=== PATIENT | male | born 1940 | race Caucasian/White ===

== ENCOUNTER 2023-07-18 09:23 | Outpatient (RCR) | payer MEDICARE, SELFPAY ==
--- NOTE | 2023-07-18 15:52 | PT.OPEX ---
[facility] Eval PT [facility] Outpatient Eval Start: 07/18/23 12:50 Freq: Status: Active Protocol: Document 07/18/23 12:50 CHUCKY (Rec: 07/18/23 15:42 CHUCKY [id number]) E-signed By Sheyla Garcia DPT Physical Therapy Outpatient Evaluation Insurance Information Recert Due Date 08/17/23 Insurance Name Medicare B Medical Diagnosis R knee pain R TKA 07/25/23 Treating Diagnosis R knee pain, impaired R knee ROM, limping/antalgic gait Subjective Subjective Patient reports chronic R knee pain leading up to R TKA . He reports living near [place] and planning to go to OP PT in [place]. He is scheduled for OP PT on 07/29. Patient has SO that is available to assist at home after surgery. States he had L TKA about 3-4 years ago. Patient has been walking leading up to surgery. Distances are limited by pain. He has not been using an AD. He has FWW at home from prior TKA. Reports 3 stairs to enter home with railing on R to get into home. Once inside able to stay on the main level. Thinks he has shower chair and commode from prior TKA surgery. Date of Last Physician Visit 05/20/23 Date of Surgery (If applicable) 07/25/23 Current Work Status Retired Assessment Assessment/Impression Patient is an 83 year old male with chronic R knee pain. He is scheduled for R TKA . He is seen in PT today for pre-op session to provide education/information on upcoming TKA surgery, safety information/HO, equipment instruction including use of FWW, and instruction/ demonstration of TKA exercises . Handouts issued for exercises, patient to perform them leading up to surgery. Reviewed PT/OT plan during hospital stay and patient is scheduled for OP PT post op in [place]. Patient had L TKA 3-4 years ago. He reports having his FWW from that surgery. 3 stairs to enter the home with R railing going up. Once inside, patient can stay on main level. He has a SO that is able to assist at home after surgery. Patient thinks he has a shower chair and commode from his prior TKA . He will look for this equipment at home. PT goals for pre-op session have been met. Patient will be going to post op rehab in [place]. No further PT scheduled at this clinic. Plan of Care Rehabilitation Potential Good Physical Therapy Goals 1. Patient will be educated in TKA pre/post-op safety, mobility, and exercises with HOs provided within one visit with patient going to PT for post op treatment after R TKA surgery on 07/25/23. Post op rehab scheduled in [place]. Coordination/Communication With Referral Source Frequency/Duration one session for TKA pre-op Patient Will Be Discharged From Therapy Completion of LTG(s),Skills Plateau,Independent w/HEP, Independently Progressing Evaluation Billing Untimed Code Treatment Minutes 34 Complexity Low Certification Information Initial Certification Date 07/18/23 Ending Certification Date 08/17/23 Provider Signature Shows Agreement With POC & Medical Necessity Physician Signature & Date Requested Please Sign/Date Here Physician Comment/Change : Physician NPI Number #
== END 2023-11-01 11:33 | disposition home or self-care (01) ==
PROVIDERS: Visit Provider Orthopaedic Surgery
DX: M17.11 Unilateral primary osteoarthritis, right knee (principal); M25.561 Pain in right knee; Z96.651 Presence of right artificial knee joint; Z74.09 Other reduced mobility; R26.89 Other abnormalities of gait and mobility; Z51.89 Encounter for other specified aftercare
CPT/HCPCS: 97161

== ENCOUNTER 2023-07-25 10:40 | Day surgery (SDC) | payer MEDICARE, SELFPAY ==
[2023-07-25] VITALS (21 sets, daily range): BP systolic 97–159; BP diastolic 62–105; PULSE 53–78; RESP 14–20; TEMP 35.3–36.4; O2SAT 90–100; BMI 28.7
[2023-07-25] MEDS: SODIUM CHLORIDE 0.9 % (FLUSH) 10 ML SYRINGE IVF (11:45)
[2023-07-25] MEDS: LACTATED RINGERS 1000 ML 1,000 ML 100 ML IV ×2 (11:45→13:56)
[2023-07-25] MEDS: OXYCODONE (CR) 10 MG TAB.ER.12H PO (11:53)
[2023-07-25] MEDS: CELECOXIB 200 MG CAPSULE PO (11:53)
[2023-07-25] MEDS: ACETAMINOPHEN 500 MG TABLET 1000 MG PO ×2 (11:53→17:37)
[2023-07-25 12:16] LABS: INR 1.13 (0.91-1.10); Prothrombin Time 15.2 Seconds
[2023-07-25] MEDS: fentaNYL 100 MCG/2 ML inj IVP (12:22)
[2023-07-25] MEDS: MIDAZOLAM HCL 1 MG/ML inj IVP (12:22)
--- NOTE | 2023-07-25 12:23 | SUR.PREOP ---
TIME?OUT:?1222 PT/RN/MDA?VERIFICATION?OF?SURGICAL?SITE,?PROCEDURE,?AND?CONSENT OBTAINED?PRIOR?TO?INVASIVE?PROCEDURE.
[2023-07-25] MEDS: CEFAZOLIN 2 GM INJ IVP (12:39)
--- NOTE | 2023-07-25 14:01 | CRLHL7_ITS ---
For Patients: As a result of the Cures Act, medical imaging exams and procedure reports are released immediately into your electronic medical record. You may view this report before your referring provider. If you have questions, please contact your health care provider. Indication: POST OP TKA Technique: Two views right knee Findings/Impression: Hardware from a right total knee arthroplasty is in satisfactory position. Bone alignment is normal. No sign of acute fracture. Postop changes are within normal limits. Dictated by Ronni Graham MD @ 07/26/2023 10:03:12 AM (Electronically Signed)
--- NOTE | 2023-07-25 14:02 | P.ORPRC_ITS ---
Procedure Note Date of procedure: 07/25/23 Procedure: PREOPERATIVE DIAGNOSIS: Right knee osteoarthritis POSTOPERATIVE DIAGNOSIS: Right knee osteoarthritis NAME OF OPERATION: Right total knee arthroplasty SURGEON: Boston De La Rosa MD AGRICULTURAL SCIENTIST: Sola Callahan PA-C ANESTHESIA: Spinal ESTIMATED BLOOD LOSS: 0 mL COMPLICATIONS: None SPECIMENS: None DRAINS: None PREOPERATIVE ANTIBIOTICS: Ancef 2 grams IMPLANTS: 1. J&J Attune # 7 posterior stabilized femur 2. # 7 fixed-bearing tibia 3. # 7 posterior stabilized, 5 mm fixed-bearing polyethylene 4. 41 patella INDICATIONS: The patient is a 83-year-old with a longstanding history of severe, unrelenting right knee pain secondary to end-stage (grade IV) right knee osteoarthritis. Despite appropriate nonoperative management, including activity modification, anti-inflammatories, [id number] pain medication, bracing, physical therapy, and injections they continue to have pain and disability. Operative intervention was offered. The risks, benefits and expected outcomes were discussed in detail. These includ ed but were not limited to: Infection, bleeding, injury to blood vessel or nerve, venous thromboembolism. All questions were answered to their satisfaction. Use of an technical services assistant was necessary throughout the case for patient positioning and safety, soft tissue retraction, and closure. PROCEDURE: Spinal anesthesia was administered. The patient was placed supine on the operating table. The technical services assistant made sure the patient was positioned appropriately. The lower extremity was prepped and draped in the usual sterile fashion. The limb was exsanguinated with the Gabriel bandage. The pneumatic tourniquet was inflated to 300 mmHg. A standard anterior incision was made with the knee in flexion. Subcutaneous dissection was sharply taken through fascial layer #1. Full-thickness medial and lateral flaps were elevated. The technical services assistant retracted the soft tissues and protected them throughout the case. The vastus medialis was elevated off of the medial intermuscular septum. The medial retinaculum was divided, the patella was everted , completing the subvastus approach. The infrapatellar fat pad was preserved. The menisci and cruciate ligaments were sharply d?brided. Marginal osteophytes were d?brided with the rongeur. The drill was used to penetrate the femoral canal. The canal was aspirated and irrigated with pulse lavage. The intramedullary femoral guide was placed for a 5-degree valgus cut, removing 10 mm off the distal femur. The saw was used to make the cut. Whitesides line and the trans epicondylar axis were marked. The femoral sizing guide was pinned onto the distal femur. Three degrees of external rotation nicely parallels the transepicondylar axis. Pins were placed for posterior referencing. The four-in-one cutting guide was pinned onto the distal femur. The anterior, posterior, and chamfer cuts were made. The technical services assistant protected the collateral ligaments. The box cutting guide was pinned. The box cuts were made. The boxed trial was placed and was an excellent fit. Drill holes for the lugs were made. Attention was then turned to the proximal tibia. The extramedullary tibial guide was placed for a neutral varus/valgus cut with 5 degrees of posterior slope, removing 2 mm based off the medial tibial surface. The technical services assistant protected the collateral ligaments and the neurovascular bundle. The saw was used to make the cut. Trial components were placed. The knee was nicely balanced in both flexion and extension. The trial components were removed. The tray was placed in appropriate rotation, parallel to our tibial cutting pins. It was pinned by the technical services assistant and the drill and the punch were used. The tray was removed. The punch was used again. We placed a bone plug in the femoral canal. Attention was then turned to the patella. Wiyot patellar thickness was 19.5 mm. The lobster claw resection guide was used with the 7.5 mm corie. The saw was used to make the cut. Drill holes were made by the technical services assistant. The trial was placed and was an excellent fit. Cancellous surfaces were irrigated with pulse lavage and thoroughly dried by the technical services assistant. We cemented the tibial component, then the femoral component. We impacted the 5 mm polyethylene onto the tibial tray. The knee was brought into full extension. We then cemented the patellar component. Excessive cement was removed. The cement was allowed to harden. The knee was taken through a range of motion and was found to be nicely balanced in both flexion and extension. The patella tracks centrally. The technical services assistant did a three minute dilute Betadine solution soak. The technical services assistant irrigated the wound with 3 liters of normal saline via pulse lavage. The technical services assistant reapproximated the extensor mechanism with #1 Vicryl in an interrupted [id number]-matci fashion. The technical services assistant then ran the extensor mechanism with a #1 PDO Stratafix. The technical services assistant closed the subcutaneous tissues with a 3-0 Stratafix and the skin with a running 3-0 Stratafix in a subcuticular fashion. Glue was used to seal the skin. The technical services assistant placed a dry dressing, IVY stocking, and Polar Care. Sponge and needle counts were correct x2. The patient tolerated the procedure well. There were no apparent complications. They were carefully transferred to the hospital bed and taken to the postanesthesia care unit in satisfactory condition. PLAN: The patient will be mobilized with physical therapy. His usual dose of Coumadin will be restarted. He will be discharged to home once medically appropriate.
--- NOTE | 2023-07-25 14:48 | W.ANESCHARGE ---
Anesthesia Charges Start Date/Time Anesthesia Start Date: 07/25/23 Anesthesia Start Time: 12:32 Stop Date/Time Anesthesia Stop Date: 07/25/23 Anesthesia Stop Time: 14:54 Summary Extremes of Age - Over 70 or under 1: MDA
--- NOTE | 2023-07-25 14:49 | P.NB_ITS ---
Nerve Block Nerve Block Time Seen by Provider: 12: Date Seen: 07/25/23 Type of block requested by surgeon for post-operative analgesia: adductor canal Side: right Time out performed: Yes Verification of patient name: Yes Verification of date of : Yes Site marking: site marked Name of person performing procedure: Rosalino Continuous monitoring Was continuous monitoring of O2 sat, B/P, personnel monitor, recorded every 15 minutes?: Yes Procedure Checklist: sterile prep, needles and gloves Ultrasound guided. Images saved: Yes Medications given in 5ml increments after negative aspiration: Ropivicaine %: 0.5 mL: 20 Needle gauge: 20 Decadron (mg): 10 Precedex (mcg): 25 Patient tolerated procedure well: Yes Additional comments: Needle noted adjacent to nerve Block Charges Block Charge (with Pro Fee): Femoral Nerve Use of Ultrasound Machine for Block: Yes- US Guidance/pain block
--- NOTE | 2023-07-25 14:49 | W.PM.NB ---
Nerve Block Nerve Block Time Seen by Provider: : Date Seen: 07/25/23 Type of block requested by surgeon for post-operative analgesia: geniculars Side: right Time out performed: Yes Verification of patient name: Yes Verification of date of : Yes Site marking: site marked Name of person performing procedure: Rosalino Continuous monitoring Was continuous monitoring of O2 sat, B/P, traffic monitor specialist, recorded every 15 minutes?: Yes Procedure Checklist: sterile prep, needles and gloves Medications given in 5ml increments after negative aspiration: Ropivicaine %: 0.5 mL: 9 Needle gauge: 25 Patient tolerated procedure well: Yes Block Charges Block Charge (with Pro Fee): Genicular Nerve Block Use of Ultrasound Machine for Block: No
--- NOTE | 2023-07-25 14:58 | W.ANESCHARGE ---
Anesthesia Charges Start Date/Time Anesthesia Start Date: 07/25/23 Anesthesia Start Time: 12:32 Stop Date/Time Anesthesia Stop Date: 07/25/23 Anesthesia Stop Time: 14:54
[2023-07-25] MEDS: LACTATED RINGERS 1000 ML 1,000 ML 75 ML IV (16:17)
[2023-07-25] MEDS: ONDANSETRON 2 MG/ML inj 4 MG IVP (16:17)
--- NOTE | 2023-07-25 16:33 | P.IMCN_ITS ---
Date of Consult Consult date: 07/25/23 Requesting Physician: Orthopedics Primary Care Provider: Not a Local Provider Consult Narrative Narrative: HOSPITALIST CONSULT NAME OF OPERATION: Right total knee arthroplasty SURGEON: Boston De La Rosa MD FUR DRESSING SUPERVISOR: Sola Callahan PA-C ANESTHESIA: Spinal ESTIMATED BLOOD LOSS: 0 mL COMPLICATIONS: None The hospital medicine team was asked by the orthopedic surgery team to manage the patient's hx of DVT/PE, HTN. There have been no perioperative complications. Updated and reviewed the active medical problems, past medical history, past surgical history, social history, allergies and medications in our electronic EMR. PHYSICAL EXAM: CODE STATUS: FULL CODE CONSTITUTIONAL: Conversive, good historian. A/O. Knows setting and context. VITAL SIGNS: see record. HEENT: Normocephalic, atraumatic. PERRL, EOMI, conjunctivae pink, no scleral icterus. Ears and nose externally normal. Pharynx normal. NECK: No JVD. No carotid bruit, no thyromegaly, no adenopathy. CHEST: Clear to auscultation bilaterally HEART: S1 and S2 normal. ABDOMEN: Flat, soft, nontender. Normal bowel sounds. Moderately obese. EXTREMITIES: No edema. MUSCULOSKELETAL: SDI NEURO: Cranial nerves intact. Mentation normal. Normal affect. SKIN: No rashes, petechiae, concerning changes PSYCHIATRIC: Mentation normal. INVESTIGATIONS: EMR Reviewed; Pre-OP Reviewed DISPOSITION: DVT: would restart his Coumadin the day after surgery. The option of lovenox bridging was discussed and the patient would prefer not to do this. 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) ?Z96.651 - Presence of right artificial knee joint (ICD-10) History of bilateral carpal tunnel release ?Z98.890 - Other specified postprocedural states (ICD-10) Status post total left knee replacement (02/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) ?Z96.652 - Presence of left artificial knee joint (ICD-10) Social History What is your current living situation?: I presently have a place to live In the past 12 months, utilities in danger of being shut off: no In past 12 months, lack of transportation kept you from medical appts, meetings, work, or getting things needed for daily living: no In the past 12 mos, have been you worried that your food would run out before you had money to buy more?: never true In the past 12 mos, the food you bought just didn't last and you didn't have money to buy more?: never true Smoking Status: Former smoker How often do you have a drink containing alcohol: never AUDIT-C Alcohol total score: 0 Non-prescribed substance use: denies use Caffeine: Yes How often does anyone, including family, friends and others, physically hurt you : never How often does anyone, including family, friends and others, insult or talk down to you: never How often does anyone, including family, friends and others, threaten you with harm: never How often does anyone, including family, friends and others, scream or curse at you: never Meds Home Medications and Allergies Home Medications Medication Instructions Recorded Confirmed Type lisinopril 5 mg tablet 5 mg PO DAILY 05/15/23 07/25/23 History warfarin 5 mg tablet 2.5 mg PO DAILY 05/15/23 07/25/23 History rosuvastatin 10 mg tablet 10 mg PO HS 07/25/23 07/25/23 History Allergies Allergy/AdvReac Type Severity Reaction Status Date / Time atorvastatin Allergy Intermediate body aches Verified 07/31/23 10:17 Exam Const: Vital Signs, click to edit/add: Vital Signs - 24 hr 07/25/23 11:33 07/25/23 12:22 07/25/23 12:25 Temperature 97.6 F Pulse Rate 78 73 63 Respiratory Rate 16 16 16 Blood Pressure 126/80 135/77 135/77 Pulse Oximetry 98 97 100 Oxygen Delivery Me thod Room Air Nasal Cannula Nasal Cannula Oxygen Flow Rate 3 3 07/25/23 14:50 07/25/23 14:55 07/25/23 15:00 Temperature 97 F L Pulse Rate 60 60 60 Respiratory Rate 14 14 14 Blood Pressure 106/64 115/66 111/66 Pulse Oximetry 98 98 98 Oxygen Delivery Me thod Non Rebreather Mas k Non Rebreather Mas k Non Rebreather Mas k Oxygen Flow Rate 5 5 5 07/25/23 15:05 07/25/23 15:10 07/25/23 15:15 Temperature Pulse Rate 56 L 63 60 Respiratory Rate 14 14 14 Blood Pressure 114/69 119/79 118/70 Pulse Oximetry 95 98 97 Oxygen Delivery Me thod Room Air Room Air Room Air Oxygen Flow Rate 07/25/23 15:20 Temperature 97 F L Pulse Rate 55 L Respiratory Rate 14 Blood Pressure 122/62 Pulse Oximetry 97 Oxygen Delivery Me thod Room Air Oxygen Flow Rate Assessment and Plan Assessment and plan (1) Status post total right knee replacement: Problem comment: Day 1 s/p doing well except for syncopal episode this morning. (Dr. De La Rosa, 07/25/2023) Status: Acute (2) Hypertension: Problem comment: Resume lisinopril when he gets home Status: Acute (3) Pulmonary embolism: Problem comment: -has been on lifelong coumadin. Resume normal warfarin dose Status: Acute
[2023-07-25] MEDS: WARFARIN 5 MG TABLET PO (17:37)
[2023-07-25] MEDS: CEFAZOLIN 2 GM in 0.9 % SODIUM CHLORIDE Mini-bag 100 ML IVPB (17:37)
[2023-07-25] MEDS: ROSUVASTATIN CALCIUM 10 MG TABLET PO (21:19)
[2023-07-25] MEDS: OXYCODONE 5 MG TABLET PO ×2 (21:19→22:36)
[2023-07-25] MEDS: SENNOSIDES 1 TAB TABLET 2 TAB PO (21:19)
[2023-07-25] MEDS: MAG HYDROX/ALUMINUM HYD/SIMETH 30 ML ORAL.SUSP PO (22:36)
[2023-07-26] VITALS: BP 134/81; PULSE 71; RESP 18; TEMP 36.4; O2SAT 93
--- NOTE | 2023-07-26 00:08 | PC.NURSE ---
Patient to the unit at 1738. Drowsy at first. Oxy x1 for 5/10 pain to R. knee. Cryo cuff to op site. A1/walker/GB. Tolerates movement well. Dressing to r. knee C/D/I. CMS intact. Zofran x1 for mild nausea. Tolerates a regular diet. Eating and voiding.
[2023-07-26] MEDS: ACETAMINOPHEN 500 MG TABLET 1000 MG PO ×3 (00:09→12:37)
[2023-07-26 03:00] VITALS: BP 130/78; PULSE 61; RESP 20; TEMP 36.7; O2SAT 91
[2023-07-26] MEDS: CEFAZOLIN 2 GM in 0.9 % SODIUM CHLORIDE Mini-bag 100 ML IVPB (03:03)
[2023-07-26] MEDS: OXYCODONE 5 MG TABLET PO ×3 (03:03→12:58)
[2023-07-26 06:43] LABS: Hematocrit 42.6 % (37.0-53.0); Immature Granulocytes Abs Auto 0.01 K/uL (0.00-0.30); Immature Granulocytes Pct Auto 0.1 %; Lymphocytes Percent Auto 6.3 % (20-44); Mean Corpuscular HGB Conc 33 gm/dL (32-36); Mean Corpuscular Hemoglobin 31 pg (26-34); Mean Corpuscular Volume 95 fL (80-100); Monocytes Percent Auto 5.4 % (0.0-11.0); Neutrophils Percent Auto 88.2 % (42.0-72.0); Platelet Count* 135 K/uL (140-440); RDW Coefficient of Variation % 13.4 % (11.5-15.5); Red Blood Count 4.47 m/uL (4.30-5.90); White Blood Count* 8.57 K/uL (4.50-11.00)
[2023-07-26 06:48] LABS: Slide Review Reflex No
[2023-07-26 06:51] LABS: Potassium* 4.7 mmol/L (3.6-5.1); Sodium* 134 mmol/L (135-149)
[2023-07-26 06:54] LABS: Creatinine* 1.2 mg/dL (0.5-1.5); Est. Creatinine Clearance* 48.16; Estimated Glomerular Filt Rate 60 ml/min
[2023-07-26 06:55] LABS: Blood Urea Nitrogen* 30 mg/dL (7-30)
[2023-07-26 06:57] LABS: INR 1.17 (0.91-1.10); Prothrombin Time 15.7 Seconds
[2023-07-26 07:00] VITALS: BP 110/68; PULSE 75; RESP 20; TEMP 36.5; O2SAT 94
[2023-07-26] MEDS: SENNOSIDES 1 TAB TABLET 2 TAB PO (09:01)
--- NOTE | 2023-07-26 09:39 | CRLHL7_ITS ---
For Patients: As a result of the Century Cures Act, medical imaging exams and procedure reports are released immediately into your electronic medical record. You may view this report before your referring provider. If you have questions, please contact your health care provider. INDICATION: Syncope. Knee surgery 07/25/2023. COMPARISON: None TECHNIQUE: : CT examination of the chest was performed with the uneventful intravenous administration of 95 cc of Isovue 370 while thin axial sections were obtained from above the apices of the lungs to the lung bases. Please note that all CT scans at this facility use dose modulation, iterative reconstruction, and/or weight-based dosing when appropriate to reduce radiation dose to as low as reasonably achievable. FINDINGS: : HEART and MEDIASTINUM: The heart size is normal. There is no mediastinal or hilar adenopathy or mass. There is no pericardial effusion.Mild fusiform aneurysmal dilation of the ascending aorta at 4.3 centimeters. PULMONARY ARTERIAL CIRCULATION: There is no visible intraluminal filling defect to suggest pulmonary embolus. LUNGS: Biapical subpleural cystic change probably due to mild paraseptal emphysema. The nearest of atelectasis primarily at the bases. Evidence of remote granulomatous infection. A few linear and reticular subpleural opacities are noted consistent with scarring/minimal fibrosis. PLEURAL SPACES: There is no pleural effusion, pneumothorax or pleural based mass. VISUALIZED UPPER ABDOMEN: The limited visualized upper abdominal structures appear normal. OSSEOUS STRUCTURES: Age-appropriate appearance. No acute fracture or destructive process. TUBES and LINES: None. IMPRESSION: 1. There is no finding of pulmonary embolus. 2. 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 3. Minimal biapical subpleural cystic change likely representing mild paraseptal emphysema. There are areas of atelectasis and scarring as described. No focal consolidation, infiltrate or mass. Normal pleural spaces Please note that all CT scans at this facility use dose modulation, iterative reconstruction, and/or weight-based dosing when appropriate to reduce radiation dose to as low as reasonably achievable. Dictated by Rojelio Silva MD @ 07/26/2023 10:34:04 AM (Electronically Signed)
[2023-07-26 09:45] VITALS: BP 132/82; PULSE 69; RESP 18; O2SAT 88
[2023-07-26 09:55] VITALS: BP 126/78; PULSE 72; RESP 18; O2SAT 93
--- NOTE | 2023-07-26 09:55 | PM.ORPN ---
Subjective Subjective Time Seen by Provider: 08:45 Date Seen: 07/26/23 Principal diagnosis: Day 1 s/p right total knee arthroplasty Interval history: Andrews is doing well this morning and resting in his recliner. C/o minimal right knee pain and right quad soreness/tightness. Denies: fever, chills, chest pain, SOB, numbness/tingling distally. Pain is well controlled with acetaminophen and oxycodone. Patient has a history of DVT and PE. Takes coumadin 5 mg Tu/Th and 2.5 mg Mon/Sat/Sat/Sat/Sun. No acute concerns overnight. Andrews's friend, Tiara, will be assisting Andrews at home. Ortho Exam Narrative Exam Narrative: Incision/Dressing: Dressing appears clean and dry. No drainage present. Mepilex intact. Right knee appears moderately swollen but supple with no obvious erythema, fluctuance or excessive warmth. No ecchymosis or erythematous streaking. Warmth around the wound is appropriate. Ice is being utilized as needed. CMS: Intact distally with 2+ Dorsalis pedis and Posterior Tibial pulses. 5/5 motor strength dorsal and plantar flexion. Confirmed sensation distally. Intact straight leg raise. Calf: Bilateral calves are supple, with no swelling, pain, tenderness, erythema, discoloration or coolness to the touch. Constitutional: Patient is alert and oriented x3. Patient is in no acute distress and converses without labored breathing. Patient is able to make decisions and demonstrates good insight. Patient is pleasant and cooperative. Affect is full range and appropriate for the circumstances. Const Vital Signs, click to edit/add: Vital Signs - 24 hr 07/25/23 11:33 07/25/23 12:22 07/25/23 12:25 Temperature 97.6 F Pulse Rate 78 73 63 Pulse Rate [Left Pulse Oximeter] Respiratory Rate 16 16 16 Blood Pressure 126/80 135/77 135/77 Blood Pressure [Right Arm] Pulse Oximetry 98 97 100 Oxygen Delivery Method Room Air Nasal Cannula Nasal Cannula Oxygen Flow Rate 3 3 07/25/23 14:50 07/25/23 14:55 07/25/23 15:00 Temperature 97 F L Pulse Rate 60 60 60 Pulse Rate [Left Pulse Oximeter] Respiratory Rate 14 14 14 Blood Pressure 106/64 115/66 111/66 Blood Pressure [Right Arm] Pulse Oximetry 98 98 98 Oxygen Delivery Method Non Rebreather Mask Non Rebreather Mask Non Rebreather Mask Oxygen Flow Rate 5 5 5 07/25/23 15:05 07/25/23 15:10 07/25/23 15:15 Temperature Pulse Rate 56 L 63 60 Pulse Rate [Left Pulse Oximeter] Respiratory Rate 14 14 14 Blood Pressure 114/69 119/79 118/70 Blood Pressure [Right Arm] Pulse Oximetry 95 98 97 Oxygen Delivery Method Room Air Room Air Room Air Oxygen Flow Rate 07/25/23 15:20 07/25/23 15:38 07/25/23 15:38 Temperature 97 F L 95.6 F L 95.6 F L Pulse Rate 55 L 58 L Pulse Rate [Left Pulse Oximeter] 58 L Respiratory Rate 14 20 20 Blood Pressure 122/62 Blood Pressure [Right Arm] 129/93 H 129/93 H Pulse Oximetry 97 94 Oxygen Delivery Method Room Air Room Air Oxygen Flow Rate 07/25/23 15:45 07/25/23 16:00 07/25/23 16:15 Temperature 95.6 F L 95.9 F L 95.9 F L Pulse Rate Pulse Rate [Left Pulse Oximeter] 60 61 68 Respiratory Rate 20 18 18 Blood Pressure Blood Pressure [Right Arm] 134/65 130/87 125/92 H Pulse Oximetry 94 93 91 Oxygen Delivery Method Room Air Room Air Room Air Oxygen Flow Rate 07/25/23 16:30 07/25/23 17:00 07/25/23 17:30 Temperature 96.0 F L 96.0 F L 96.3 F L Pulse Rate Pulse Rate [Left Pulse Oximeter] 68 70 53 L Respiratory Rate 18 16 18 Blood Pressure Blood Pressure [Right Arm] 97/81 144/76 H 141/105 H Pulse Oximetry 92 94 91 Oxygen Delivery Method Room Air Room Air Room Air Oxygen Flow Rate 07/25/23 18:00 07/25/23 19:00 07/25/23 20:00 Temperature 96.6 F L 97.0 F L 97.0 F L Pulse Rate Pulse Rate [Left Pulse Oximeter] 60 67 60 Respiratory Rate 18 20 20 Blood Pressure Blood Pressure [Right Arm] 153/79 H 159/95 H 143/79 H Pulse Oximetry 95 90 94 Oxygen Delivery Method Room Air Room Air Room Air Oxygen Flow Rate 07/25/23 21:00 07/26/23 00:00 07/26/23 00:00 Temperature 97.5 F L 97.6 F Pulse Rate Pulse Rate [Left Pulse Oximeter] 61 71 71 Respiratory Rate 20 18 18 Blood Pressure Blood Pressure [Right Arm] 129/79 134/81 Pulse Oximetry 93 93 Oxygen Delivery Method Room Air Room Air Oxygen Flow Rate 07/26/23 03:00 07/26/23 07:00 Temperature 98.0 F 97.7 F Pulse Rate Pulse Rate [Left Pulse Oximeter] 61 75 Respiratory Rate 20 20 Blood Pressure Blood Pressure [Right Arm] 130/78 110/68 Pulse Oximetry 91 94 Oxygen Delivery Method Room Air Room Air Oxygen Flow Rate Assessment and Plan Assessment and plan (1) Status post total right knee replacement: Problem details: Day 1 s/p Status: Acute Plan - Complete 23 hour perioperative antibiotics. - PT/OT consults for education and assistance. Patient will require outpatient physical therapy. - Weight bear as tolerated with a walker for assistance. - Mepilex dressing is waterproof. May shower. Surgical glue covering the wound. Dressing to be removed in 1 week or sooner if the dressing becomes saturated. - Prescribed analgesics as needed. Patient is content with current narcotic medications. Minimize narcotic pain medication use; wean off and discontinue as soon as possible. Ice as needed. - DVT prophylaxis: resume regular coumadin dose. Andrews has an appointment at his [facility] clinic on Sunday 07/29. Also bilateral knee high Martin stockings (x 1 month), frequent ambulation and ankle pumps when sedentary. - Return to clinic in 1 week for a wound check with DANIELLE. - Return to clinic in [address] De La Rosa. - Phone Orthopedics with any questions or concerns. [phone]
[2023-07-26 10:18] LABS: INR 1.18 (0.91-1.10); Partial Thromboplastin Time* 29 Seconds (23-33); Prothrombin Time 15.8 Seconds
[2023-07-26 10:30] LABS: Troponin I* < 0.01 ng/mL (0.01-0.04)
[2023-07-26 11:00] VITALS: BP 137/74; RESP 16; TEMP 36.4
--- NOTE | 2023-07-26 11:50 | PC.NURSE ---
Rapid Response-- At approximately 0935, PARKER Newell came to nurses desk asking for help. Upon arrival pt lying on bed in Therapy room. Pt pale and diaphoretic but appearing to be recovering. He denied CP or SOB. Per report pt had been doing therapy when his eyes began to unfocus, he became pale and diaphoretic and unresponsive. Pt drowsy, but responsive. B/P 132/82, HR 69, RR 18, SPO2 88-91% on RA. BG obtained at 139. ECG completed showing NSR. IV inserted by ED RN and labs drawn with insertion. Pt was able to slowly sit up without difficulty. Pt sent to CT for PE study per MD order.
--- NOTE | 2023-07-26 13:14 | PM.IMPN1 ---
Progress Note: A&P Assessment and plan (1) Syncope: Problem details: Appears to be vasovagal or neurocardiogenic syncope. Electrocardiograms normal. Chest CT for PE was obtained and was normal. Patient is now feeling well and ambulating without lightheadedness or any other symptoms other than knee pain. Status: Acute (2) Pulmonary embolism: Problem details: -has been on lifelong coumadin. Resume normal warfarin dose Status: Acute (3) Hypertension: Problem details: Resume lisinopril when he gets home Status: Acute (4) Status post total right knee replacement: Problem details: Day 1 s/p doing well except for syncopal episode this morning. Status: Acute Plan Patient I think can be safely discharged to home. Follow-up only if recurrent problems with lightheadedness or syncope. Routine outpatient therapy for knee rehab. Time Spent With Patient Total time spent: Total time spent today is 60 minutes, 40 minutes in coordination of care and discussing with patient friend and other providers management of Subjective Date Seen: 07/26/23 Interval history: 83-year-old male who underwent right total knee arthroplasty yesterday seen emergently today for syncopal episode. Patient had an uncomplicated postoperative.. He reported doing well this morning when he got up. He has had some issues with knee pain but otherwise has been managing well. He had a normal breakfast. He went to physical therapy where he had a syncopal episode. It appears that he became nearly completely unresponsive and lost body tone. He was diaphoretic. He was lying supine in the therapy department when I was called to see him as a part of a rapid response team. At that time he was responding to voices, breathing normally and had normal vitals except for hypoxia with O2 sat in the upper 80s. He was quite diaphoretic. He reported feeling very weak and tired. He had no chest pain or dyspnea. He was not aware of a fever. He reported some ongoing knee pain. Patient has history of pulmonary emboli and right lower extremity DVT going back to about 1989. He has been on warfarin since that time. Warfarin was held for surgery this week. INR was 1.2. He has some chronic right lower extremity venous insufficiency with chronic venous stasis skin changes in his right leg since that DVT many years ago. Over the past couple years he has had a couple episodes of syncope as well. On both occasions he was feeling very hot but not exerting himself prior to syncopal episodes. In 1 case he was sitting in [facility] office with his daughter and her 3 dogs in a room that was very warm and he was wearing his winter coat. He was feeling very hot and then briefly lost consciousness. Another occasion he was sitting in a very hot hot tub. He was and comfortably hot and so he was climbing out and had another syncopal episode. He was evaluated in emergency room after 1 of those episodes and discharge without any further evaluation. He has never had syncope associated with physical exertion. Exam Narrative: Exam Narrative: He is alert now lying on a bed in physical therapy department. He answers questions appropriately. He has no obvious facial asymmetry. He moves all 4 extremities well. Respirations are clear to auscultation. Breathing is unlabored. Cardiovascular: S1, S2, regular rate and rhythm. No murmur gallop or rub. Is strong peripheral pulses. Abdomen is soft without tenderness. Lower extremities examined. He has chronic venous stasis changes of his right calf. Mild edema of the right lower extremity which he reports is chronic. There is no marked bruising or bleeding or swelling around the right knee. Left lower extremity is normal. Const: Vital Signs, click to edit/add: Vital Signs - 24 hr 07/25/23 14:50 07/25/23 14:55 07/25/23 15:00 Temperature 97 F L Pulse Rate 60 60 60 Pulse Rate [Left P ulse Oximeter] Respiratory Rate 14 14 14 Blood Pressure 106/64 115/66 111/66 Blood Pressure [Le ft Arm] Blood Pressure [Ri ght Arm] Pulse Oximetry 98 98 98 Oxygen Delivery Me thod Non Rebreather Mas k Non Rebreather Mas k Non Rebreather Mas k Oxygen Flow Rate 5 5 5 07/25/23 15:05 07/25/23 15:10 07/25/23 15:15 Temperature Pulse Rate 56 L 63 60 Pulse Rate [Left P ulse Oximeter] Respiratory Rate 14 14 14 Blood Pressure 114/69 119/79 118/70 Blood Pressure [Le ft Arm] Blood Pressure [Ri ght Arm] Pulse Oximetry 95 98 97 Oxygen Delivery Me thod Room Air Room Air Room Air Oxygen Flow Rate 07/25/23 15:20 07/25/23 15:38 07/25/23 15:38 Temperature 97 F L 95.6 F L 95.6 F L Pulse Rate 55 L 58 L Pulse Rate [Left P ulse Oximeter] 58 L Respiratory Rate 14 20 20 Blood Pressure 122/62 Blood Pressure [Le ft Arm] Blood Pressure [Ri ght Arm] 129/93 H 129/93 H Pulse Oximetry 97 94 Oxygen Delivery Me thod Room Air Room Air Oxygen Flow Rate 07/25/23 15:45 07/25/23 16:00 07/25/23 16:15 Temperature 95.6 F L 95.9 F L 95.9 F L Pulse Rate Pulse Rate [Left P ulse Oximeter] 60 61 68 Respiratory Rate 20 18 18 Blood Pressure Blood Pressure [Le ft Arm] Blood Pressure [Ri ght Arm] 134/65 130/87 125/92 H Pulse Oximetry 94 93 91 Oxygen Delivery Me thod Room Air Room Air Room Air Oxygen Flow Rate 07/25/23 16:30 07/25/23 17:00 07/25/23 17:30 Temperature 96.0 F L 96.0 F L 96.3 F L Pulse Rate Pulse Rate [Left P ulse Oximeter] 68 70 53 L Respiratory Rate 18 16 18 Blood Pressure Blood Pressure [Le ft Arm] Blood Pressure [Ri ght Arm] 97/81 144/76 H 141/105 H Pulse Oximetry 92 94 91 Oxygen Delivery Me thod Room Air Room Air Room Air Oxygen Flow Rate 07/25/23 18:00 07/25/23 19:00 07/25/23 20:00 Temperature 96.6 F L 97.0 F L 97.0 F L Pulse Rate Pulse Rate [Left P ulse Oximeter] 60 67 60 Respiratory Rate 18 20 20 Blood Pressure Blood Pressure [Le ft Arm] Blood Pressure [Ri ght Arm] 153/79 H 159/95 H 143/79 H Pulse Oximetry 95 90 94 Oxygen Delivery Me thod Room Air Room Air Room Air Oxygen Flow Rate 07/25/23 21:00 07/26/23 00:00 07/26/23 00:00 Temperature 97.5 F L 97.6 F Pulse Rate Pulse Rate [Left P ulse Oximeter] 61 71 71 Respiratory Rate 20 18 18 Blood Pressure Blood Pressure [Le ft Arm] Blood Pressure [Ri ght Arm] 129/79 134/81 Pulse Oximetry 93 93 Oxygen Delivery Me thod Room Air Room Air Oxygen Flow Rate 07/26/23 03:00 07/26/23 07:00 07/26/23 09:45 Temperature 98.0 F 97.7 F Pulse Rate Pulse Rate [Left P ulse Oximeter] 61 75 69 Respiratory Rate 20 20 18 Blood Pressure Blood Pressure [Le ft Arm] 132/82 Blood Pressure [Ri ght Arm] 130/78 110/68 Pulse Oximetry 91 94 88 Oxygen Delivery Me thod Room Air Room Air Room Air Oxygen Flow Rate 07/26/23 09:55 07/26/23 11:00 Temperature 97.6 F Pulse Rate Pulse Rate [Left P ulse Oximeter] 72 Respiratory Rate 18 16 Blood Pressure Blood Pressure [Le ft Arm] 126/78 Blood Pressure [Ri ght Arm] 137/74 Pulse Oximetry 93 Oxygen Delivery Me thod Room Air Oxygen Flow Rate Documenting provider has reviewed patient's vital signs: yes Labs Labs: Laboratory Results - last 24 hr 07/26/23 07/26/23 06:10 09:45 WBC 8.57 RBC 4.47 Hgb 14.0 Hct 42.6 MCV 95 MCH 31 MCHC 33 RDW Coeff of Bebo 13.4 Plt Count 135 L Neut % (Auto) 88.2 H Lymph % (Auto) 6.3 L Carroll % (Auto) 5.4 Eos % (Auto) 0.0 Baso % (Auto) 0.0 Neut # (Auto) 7.60 H Lymph # (Auto) 0.50 L Carroll # (Auto) 0.50 Eos # (Auto) 0.00 Baso # (Auto) 0.00 Abs Immat Gran (auto) 0.01 Imm/Tot Granulo (auto) 0.1 INR 1.17 H 1.18 H APTT 29 Sodium 134 L Potassium 4.7 BUN 30 Creatinine 1.2 Estimated Creat Clear 48.16 Estimated GFR 60 Troponin I < 0.01 L
--- NOTE | 2023-07-26 15:07 | PC.NURSE ---
Discharge - Pt alert, oriented, cooperative and pleasant during shift. Tolerating RA, regular diet, fluids. Continent of bowel and bladder. Pt experienced syncope episode with PT during shift, MUNIR Hernandez recorded details in nursing note. Pt denied nausea, SOB, dizziness at time of discharge. Pt reported pain as 6/10 after activity, pain management given per MAR with verbalized improvement. Dressing CDI, cryocuff in place. Significant other at bedside, discharge education provided to both with verbalized understanding. Discharge paperwork signed, IV removed x 2 with catheter intact x 2. Discharge to home in wheelchair with s/o at approximately 1420.
== END 2023-07-26 14:20 | disposition home or self-care (01) ==
LOC: OR 10:41 → MEDSURG 10:44
PROVIDERS: Anesthesiology; Family Medicine; Visit Provider Orthopaedic Surgery
PROC: (CPT 27447; principal; 2023-07-25 12:45)
DX: M17.11 Unilateral primary osteoarthritis, right knee (principal); G89.18 Other acute postprocedural pain; R55 Syncope and collapse; I10 Essential (primary) hypertension; Z86.711 Personal history of pulmonary embolism; Z86.718 Personal history of other venous thrombosis and embolism; Z79.01 Long term (current) use of anticoagulants
CPT/HCPCS: 27447; 01402; 36415; 64447; 64454; 71275; 73560; 76942; 82565; 84132; 84295; 84484; 84520; 85025; 85610; 85730; 93005; 97110; 97116; 97161; 97165; 97530; 99100; A9270; C1776; J0690; J1100; J2250; J2405; J2704; J2795; J3010; J7120; Q9967

== ENCOUNTER 2024-03-20 07:12 | Outpatient (CLI) | payer MEDICARE, SELFPAY ==
--- OUTSIDE RECORDS SUMMARY | 2024-03-20 07:14 | XMS_ITS | Clinical Summary ---
Author Organization [facility] Address [place], [place] [address] Care Team Providers Care Annealer Helper Name Role Phone Meche Anderson MD Primary Care Provider [phone] Allergies Active Allergy Reactions Criticality Noted Date Comments Atorvastatin Myalgia Low 06/06/2005 Simvastatin Myalgia Low 08/11/2007 Medications Medication Sig Dispensed Refills Start Date End Date Status rosuvastatin (CRESTOR) 10 mg tabletIndications:Mixe d hyperlipidemia Take 1 Tablet (10 mg) by mouth at bedtime. 90 Tablet 3 06/04/2023 Active lisinopriL (PRINIVIL; ZESTRIL) 5 mg tabletIndications:Esse ntial hypertension Take 1 Tablet (5 mg) by mouth once daily. 90 Tablet 3 06/04/2023 Active acetaminophen (TYLENOL EXTRA STRGTH) 500 mg tablet Take 500 mg by mouth every 4 hours if needed. 07/25/2023 Active oxyCODONE (ROXICODONE) 5 mg immediate release tablet Take 5 mg by mouth every 4 hours if needed. 07/25/2023 Active warfarin (COUMADIN) 5 mg tabletIndications:Hist ory of DVT (deep vein thrombosis),Anticoagul ation monitoring, INR range 2-3,Bilateral pulmonary embolism (HC) Take by mouth 2 mg (2 mg x 1) every Sat, Sat; 2.5 mg (5 mg x 0.5) all other days in the evening OR as directed 35 Tablet 02/18/2024 Active warfarin (COUMADIN) 2 mg tabletIndications:Hist ory of DVT (deep vein thrombosis),Anticoagul ation monitoring, INR range 2-3 Take by mouth 2 mg (2 mg x 1) every e, Edel; 2.5 mg (5 mg x 0.5) all other days in the evening OR as directed 30 Tablet 02/18/2024 Active Active Problems Problem Noted Date Diagnosed Date Chronic pain of right knee 06/04/2023 Nocturnal muscle cramps 06/04/2023 Stage 3a chronic kidney disease 06/04/2023 Essential hypertension 04/17/2022 Prediabetes 12/20/2020 Venous insufficiency 07/31/2016 History of DVT (deep vein thrombosis) 01/27/2015 Anticoagulation monitoring, INR range 2-3 2012 Mixed hyperlipidemia 02/20/2011 Advance care planning 02/16/2011 Overview: Patient has identified Decision Maker(s): Yes Add Health Care Agents: Yes Decision Maker(s): Primary Decision Maker: Rochelle Menendez Relationship: spouse Phone: H: [phone] W: [phone] Secondary Health Care Agent: Relationship: Phone: Conservator: Relationship: Phone: Guardian: Relationship: Phone: Patient has Advance Care Plan Documents (Health Care Directive, POLST): No, Pt not interested in HCD at this time.. Patient has identified Specific Treatment Preferences: No Specific limits to treatment preferences NOT identified: ASSUME FULL TREATMENT. 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 01/28/2011 02/20/2011 DVT (deep venous thrombosis) 05/07/2010 01/27/2015 Bilateral pulmonary embolism 04/14/2010 10/16/2019 Impaired fasting glucose Left carpal tunnel syndrome 10/16/2019 Right carpal tunnel syndrome 10/16/2019 Encounters Date Type Department Care Team Description 03/09/2024 12:40 PM CDT Ancillary Procedure [address] [place] [address] 03/09/2024 12:00 PM CDT Office Visit [address] [place] [address] Javan Lopez MD Knee Pain/problem (Left knee x 2 weeks after a loud crack ) 03/09/2024 Travel 03/09/2024 Nurse Triage [address] [place] [address] Meche Anderson MD Knee Pain/problem 03/03/2024 10:20 AM CDT Orders Only [address] [place] [address] Lab, [facility] 03/03/2024 Anticoagulation (warfarin) [address] [place] [address] 1, [facility] Anticoagulation 03/03/2024 Travel 02/18/2024 10:10 AM CDT Orders Only [address] [place] [address] Lab, [facility] 02/18/2024 Anticoagulation (warfarin) [address] [place] [address] 1, [facility] Anticoagulation 02/18/2024 Travel 02/18/[address] [place] [address] Meche Anderson MD Refill Request (Warfarin) 02/05/[address] [place] [address] Meche Anderson MD Anticoagulation (OVERDUE #2 reminder) 01/03/[address] [place] [address] Meche Anderson MD Anticoagulation (Unable to Contact) 12/31/2023 10:10 AM CDT Orders Only [address] [place] [address] Lab, [facility] 12/31/2023 Anticoagulation (warfarin) [address] [place] [address] 1, [facility] Anticoagulation 12/31/2023 Travel from Last 3 Months Immunizations Name Administration Dates Next Due AMB Influenza, IIV3 (Age >=3 years)(Flu Clinic Only) 06/19/2012 COVID-19 vaccine ([employer] 30mcg/0.3mL) PF, MDV 10/19/2020,09/28/2020 Influenza, High-dose Inactivated 05/22/2018,03/2018 Influenza, High-dose Quadriv alent Inactivated 06/01/2022,05/19/2020 Influenza, IIV3 (Age >=3 years) 06/29/20 13,08/21/2010,10/19/2009,2008 Influenza, IIV4 06/23/2021 Influenza, IIV4 (=>6mos) MDV 06/19/2019, 06/25/2017,06/05/2016,2014,08/11/2014 Influenza, Inactivated AIIV4 (Age 65+ Years) Preserv Free 06/04/2023 Influenza, Inactivated IIV3 (Age 65+ Years) Preserv Free 06/25/2017 Pneumococcal Poly,23-Valent (Pneumovax) 08/21/2010 Pneumococcal conj 13-Valent (Prevnar 13) 07/17/2017 Tdap 02/24/2013 Family History Medical History Relation Name Comments Other Father liver disease Cancer Mother lung Other Son 2 multiple DVTs Relation Name Status Comments Father (Age 64) Mother (Age 75) Son 1 Alive multiple DVTs Son 2 Social History Tobacco Use Types Packs/Day Years Used Date Smoking Tobacco: Former Cigarettes Q uit: 01/10/1990 Smokeless Tobacco: Never Tobacco Cessation:Counseling Given: No Alcohol Use Standard Drinks/Week Comments Not Currently 0 (1 standard drink = 0.6 oz pur e alcohol) PHQ-2 Answer Date Recorded PHQ-2 TOTAL SCORE 0 06/04/2023 Social Connections Answer Date Recorded Frequency of Communication with Friends and Fami ly Not on file 04/20/2023 Financial Resource Strain Answer Date R ecorded Difficulty of Paying Living Expenses 3 04/17/2022 Difficulty of Paying Living Expenses Not on file 04/17/2022 Food Insecurity Answer Date Recorded Worried About Running Out of Food in the Last Ye ar 1 04/17/2022 Transportation Needs Answer Date Record ed Lack of Transportation (Medical) 1 04/17/2022 Housing Stability Answer Date Recorded Unable to Pay for Housing in the Last Year 1 04/17/2022 Sex and Gender Information Value Date Recorded Sex Assigned at Not on file Gender Identity Not on file Sexual Orientation Not on file Obstetrics History Last Filed Vital Signs Vital Sign Reading Time Taken Comments Blood Pressure 114/60 03/09/2024 12:21 PM CDT Pulse 80 03/09/2024 12:21 PM CDT Temperature 36.8 ??C (98.3 ??F) 11/04/2021 11:24 AM C DT Respiratory Rate 16 11/04/2021 2:50 PM CDT Oxygen Saturation 97% 06/04/2023 10:26 AM CDT Inhaled Oxygen Concentration - - Weight 91.6 kg (202 lb) 03/09/2024 12:21 PM CDT Height 175.9 cm (5' 9.25) 03/09/2024 12:21 PM C DT Body Mass Index 29.62 03/09/2024 12:21 PM CDT Plan of Treatment Upcoming Encounters Date Type Department Care Team (Late st Contact Info) Description 03/31/2024 10:10 AM CDT Orders Only [address] [address] [facility] Due Date Last Done Comments Zoster (shingles) series for age 50+ (1 of 2) 1990 Tetanus booster 02/24/2023 02/24/2013 COVID-19 vaccine series ( season) 2023 06/01/2022, 06/06/2021, 10/19/2020, Additional history exists Influenza for age 65+ 04/12/2024 06/04/2023 , 06/01/2022, 06/23/2021, Additional history exists Depression screening for age 12+ 06/04/2024 06/04/2023, 06/04/2023, 06/04/2023, Additional history exists Medicare Wellness for age 65+ 06/04/2024 06/04/2023, 02/07/2021 BMI (ht and wt on same day) for age 18+ 03/09/2025 03/09/2024, 06/04/2023, 04/17/2022, Additional history exists Tdap Completed 02/24/2013 Pneumococcal series for age 65+ Completed 7, 08/21/2010 Procedures Procedure Name Priority Date/Time Associated Diagnosis Comments XR KNEE 3 VIEWS LEFT Routine 03/09/2024 12:52 PM CDT Acute pain of left knee PROTIME-INR STAT 03/03/2024 9:44 AM CDT History of DVT (deep vein thrombosis) Anticoagulation monitoring, INR range 2-3 PROTIME-INR STAT 02/18/2024 9:53 AM CDT History of DVT (deep vein thrombosis) Anticoagulation monitoring, INR range 2-3 PROTIME-INR STAT 12/31/2023 9:50 AM CDT History of DVT (deep vein thrombosis) Anticoagulation monitoring, INR range 2-3 from Last 3 Months Results * XR KNEE 3 VIEWS LEFT (03/09/2024 12:52 PM CDT) Anatomical Region Laterality Modality KNEES, KNEE L Computed Radiogr aphy 03/09/2024 1:05 PM CDT Narrative 03/09/2024 1:05 PM CDT For Patients: ??As a result of the Century Cures Act, medical imaging exams and procedure reports are released immediately into your electronic medical record. ??You may view this report before your referring provider. ??If you have questions, please contact your health care provider. INDICATION: Acute left knee pain. TECHNIQUE: Three views left knee. COMPARISON: 04/06/2019. FINDINGS: Total left knee arthroplasty lies in optimal anatomical position. There is normal anatomical alignment. No evidence of prosthesis loosening. There is a small bone fragment off of the medial aspect of the patella of indeterminate significance. No evidence of joint effusion. Dictated by Hillary Scott MD @ 03/09/2024 1:05:42 PM (Electronically Signed) Procedure Note Jeremy Scott MD - 03/09/2024 For Patients: As a result of the Cures Act, medical imagingexams and procedure reports are released immediately into your electronicmedical record. You may view this report before your referring provider.If you have questions, please contact your health care provider. INDICATION: Acute left knee pain. TECHNIQUE: Three views left knee. COMPARISON: 04/06/2019. FINDINGS: Total left knee arthroplasty lies in optimal anatomical position. There isnormal anatomical alignment. No evidence of prosthesis loosening. There raudel small bone fragment off of the medial aspect of the patella ofindeterminate significance. No evidence of joint effusion. Dictated by Hillary Scott MD @ 03/09/2024 1:05:42 PM (Electronically Signed) Javan Lopez MD GENERAL IMAGING * (ABNORMAL) PROTIME-INR (03/03/2024 9:44 AM CDT) Only the most recent of3 resultswithin the time period is included. INR 3.0(H) <1.3 03/03/2024 10:17 AM T [facility] PROTIME 32.7(H) 10.3 - 12.3 sec 03/03/2024 10:17 AM T [facility] Blood BLOOD SPECIMEN / Unknown Venipuncture / Unknown 03/03/2024 9:44 AM CDT 03/03/2024 9:46 AM CDT Narrative [facility] - 03/03/2024 10:17 AM CDT ?Therapeutic Range 2.0-3.0 for most anticoagulated patients 2.5-3.5 or 4.0 for high risk patients The INR is only used for patients on stable oral anticoagulant therapy. It makes no significant contribution to the diagnosis or treatment of patients whose Protime is prolonged for other reasons. INR results are increased when heparin levels exceed 1.0 U/mL, which corresponds to an aPTT >125 seconds if the patient is on UFH. Meche Anderson MD HEMATOLOGY [facility] [address] [place] [address] from Last 3 Months Advance Directives * Full Code (Latest Code Status on File) Date Activated Date Inactivated Comments 01/26/2011 10:14 PM 01/30/2011 4:08 PM Care Teams Annealer Helper Relationship Specialty Start Date End Date Meche Anderson MD [address] [place] [address] PCP - General 08/16/06
--- NOTE | 2024-03-20 08:15 | MR_ITS ---
[address] [address] Phone:?[phone] Fax:?[phone] Referring Physician Information: Letitia Dewey [address] [facility] [address] Phone:?[phone] Fax:?[phone] Patient:Jesus Manuel Menendez D.O.B:?1940 Sex:?Male Phone:?[phone] [facility] MRN:?[id number] Exam Date:?03/20/2024 EXAM: MRI EXAMINATION OF THE LEFT HIP CLINICAL INFORMATION: Male, 83 years old, with left hip pain. INDICATION: Evaluate for arthritis. PRIOR SURGERY: None reported. PLAIN FILMS: None available. COMPARISONS: No prior MRIs available. TECHNICAL INFORMATION: Using a 1.5T MR scanner and a localizing surface coil: coronals: PD, T2 sagittals: PD, T2 oblique axials: PD straight axials: PDFS coronals: T1, STIR of pelvis and hips SEDATION: None CONTRAST: None FINDINGS: Hip joint: Moderate hip joint effusion, synovitis. Marked thinning of the articular cartilage throughout the left hip joint with broad-based full-thickness chondral loss (sagittal PD series 8 image 11). No intra-articular bodies. Labrum: Intrasubstance degeneration and poorly defined tearing involves the anterior through superior labrum (axial PD oblique series 6 images 10-16). No paralabral cyst. Proximal femur: Approximately 2.8 x 2.5 cm area of poorly defined subchondral fracturing of the anterosuperior aspect of the femoral head, with overlying cortical flattening and extensive bone marrow edema throughout the femoral head and neck (coronal STIR series 2 image 15 and sagittal T2 series 9 image 13). Mild-moderate marginal osteophytosis. Acetabulum: Moderate marginal osteophytosis. Moderate edema-like signal is present throughout the superomedial aspect of the acetabulum. Version: There appears decreased cranial acetabular anteversion without convincing retroversion. Coverage: Left lateral center edge (CE) angle measures approximately 41? (normal 25?-39?), midline coronal series 4 image 13, corrected for pelvic obliquity. Ligamentum teres: Ligamentum teres is intact and unremarkable. Iliofemoral ligament: The iliofemoral ligament is intact without thickening. Pelvis osseous structures: Sacral ala and sacroiliac joints: Mild joint space narrowing, osteophytosis, and reactive edema along the inferior aspects of the sacroiliac joints, bilaterally (coronal STIR series 2 images 22-26). Pubic rami and pubic symphysis: No stress/insufficiency fractures or marrow edema/pathology. Normal alignment without hypertrophy or evidence of ongoing osteitis pubis. Myotendinous structures: Gluteus abductors: Mild-moderate gluteus minimus tendinopathy with low-grade partial-thickness tearing (axial PDFS series 7 images 11-19). Gluteus medius is unremarkable. Adductors: No demonstrable tendinopathy or strain/tear. Hamstrings: Mild-moderate left and mild right common hamstrings tendinopathy, without tear. Flexors: Intact iliopsoas and rectus femoris, without strain/tear. External rotators: Intact, without demonstrable ischiofemoral impingement. Gluteal aponeurotic fascia and IT band: Unremarkable. Bursae: No demonstrable trochanteric, iliopsoas, or iliopectineal bursitis. Intrapelvic contents: Free fluid: No free fluid seen within the pelvis. Pelvic viscera: No discrete intrapelvic mass is identified. Lymph nodes: No lymphadenopathy by MRI size criteria. Neurovascular structures: No discrete cyst, mass or other compression upon the portions visualized of sciatic or femoral nerves. Lumbar spine: Disc desiccation and disc height loss throughout the lower lumbar spine. IMPRESSION: 1. 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 2. Approximately 2.8 x 2.5 cm area of poorly defined subchondral fracturing of the anterosuperior aspect of the femoral head, with extensive bone marrow edema and mild overlying cortical flattening. 3. Intrasubstance degeneration and poorly defined tearing of the anterior through superior labrum, which is of doubtful clinical significance. 4. Mild-moderate gluteus minimus tendinopathy with low-grade partial-thickness tearing. 5. Mild-moderate left and mild right common hamstrings tendinopathy, without tear. 6. Lower lumbar spondylosis, which is incompletely evaluated on this study. BC Electronically signed on 03/20/2024 10:11:00 AM by Hua Davila M.D.
== END 2024-03-20 07:13 | disposition home or self-care (01) ==
LOC: MRI 07:13
PROVIDERS: PCP Internal Medicine; Visit Provider Physician Assistant
DX: M25.552 Pain in left hip (principal); M16.12 Unilateral primary osteoarthritis, left hip; M84.459A Pathological fracture, hip, unspecified, initial encounter for fracture; S43.432A Superior glenoid labrum lesion of left shoulder, initial encounter; S39.011A Strain of muscle, fascia and tendon of abdomen, initial encounter; M47.896 Other spondylosis, lumbar region
CPT/HCPCS: 73721

== ENCOUNTER 2024-04-08 13:03 | Outpatient (RCR) | payer MEDICARE, SELFPAY ==
--- NOTE | 2024-04-08 14:06 | PT.OPEX ---
PT [facility] Outpatient Eval PT [facility] Outpatient Eval Start: 04/08/24 08:46 Freq: Status: Active Protocol: Document 04/08/24 08:47 MLS (Rec: 04/08/24 14:05 MLS [id number]) E-signed By Sylwia Patel DPT Physical Therapy Outpatient Evaluation Insurance Information Recert Due Date 07/06/24 Insurance Name Medicare B,Blue Cross/Blue Shield Medical Diagnosis M16.12 unilateral primary OA, left hip Left LYLA on 04/14/24 Treating Diagnosis LYLA protocol Referring MD Dr. De La Rosa Subjective Subjective Patient is a 83 year old male who presents to physical therapy for his pre-op appointment prior to left LYLA on 04/14/24. The plan is for same day surgery. Significant past medical history includes metal implants (bilateral knee replacements). Pain Comments Today: 10/10 on a 0-10 pain scale with 10 = extreme pain Current Work Status Retired Objective Other/Pertinent Objective KNEE ROM Grossly tested WNL HIP ROM Right: Grossly tested WNL Left: Flexion: 40 Internal Rotation: 5 External Rotation 10 Abduction 10 LLE MMT: Hip flexion: R 5/5 L 3+/5 Hip abduction: R 5/5 L 3+/5 Hip extension: R 5/5 L 3+/5 Knee flexion: R 5/5 L 4-/5 Knee extension: R 5/5 L 4-/5 TX: Reviewed/demonstrated on frequency to perform HEP post operatively including: long sitting quad set ankle pumps supine glute sets supine hamstring sets supine heel slide standing hip abd with UE support Extensive discussion and education on what to expect post operatively. Time was spent discussing home modifications, Assistive devices, pain control, fall prevention, hospital stay time line, and assist needed for activities post surgically. Pt questions were answered and demonstrated understanding. Assessment Assessment/Impression Pt is an 83 year old male who presents for his pre-op appointment prior to left LYLA on 04/14/24. Patient also has notable objective findings including limited ROM, tenderness to palpation, and decreased strength which are also likely contributing to the problem. Patient is a good candidate for skilled therapy to target deficits described above. Skilled PT intervention is necessary for use of therapeutic exercise manual therapy, neuromuscular re- education, gait training, and therapeutic activity. Functional impairments include difficulty with: standing, walking, exercising and ADLS. See appropriate sections of PT eval for complete list of goals and POC. D/C plan and criteria is for pt to achieve the goals as listed below or until max rehab potential is met. Pt was agreeable with plan of care and goals established. Primary Functional Limitations standing walking exercising ADLs Plan of Care Rehabilitation Potential Good Physical Therapy Goals STG: (prior to surgery) !. Pt will demonstrate independence in performance of home exercise program with the use of video and/or handouts in order to optimize functional mobility and reduce risk for re-injury. MET LTG: (post surgery) 1) Pt will be indep with HEP for skilled nursing management of pain/symptoms 2) Pt will improve hip AROM at least 0-90* for improved sit to stand transfers 3) Patient will ascend/descend at least 14 steps using single rail and reciprocal pattern to improve ease of mobility at home/community to get to basement. 4) Patient will ambulate at least 15 minutes with single point cane, minimal antalgic gait for improved community mobility Coordination/Communication With Referral Source Treatment Plan/Direct Interventions Gait Training,Neuromuscular Re -ed,Therapeutic Activities, Therapeutic Exercises Patient Will Be Discharged From Therapy Independently Progressing Evaluation Billing Untimed Code Treatment Minutes 25 Complexity Low Certification Information Provider Signature Required Yes Provider Signature Shows Agreement With POC & Medical Necessity Physician NPI Number Write NPI# Here Physician Comment/Change : Physician Signature & Date Requested Please Sign/Date Here
== END 2024-07-28 12:55 | disposition home or self-care (01) ==
PROVIDERS: PCP Internal Medicine; Visit Provider Orthopaedic Surgery
DX: M16.12 Unilateral primary osteoarthritis, left hip (principal); Z51.89 Encounter for other specified aftercare
CPT/HCPCS: 97161

== ENCOUNTER 2024-04-14 06:01 | Day surgery (SDC) | payer MEDICARE, SELFPAY ==
[2024-04-14] VITALS (30 sets, daily range): BP systolic 100–146; BP diastolic 60–106; PULSE 58–82; RESP 14–20; TEMP 36.1–36.6; O2SAT 92–99; BMI 29.9
--- OUTSIDE RECORDS SUMMARY | 2024-04-14 06:04 | XMS_ITS | Clinical Summary ---
Author Organization [facility] Address [place], [place] [address] Care Team Providers Care Drum Puller Name Role Phone Meche Anderson MD Primary Care Provider [phone] Allergies Active Allergy Reactions Criticality Noted Date Comments Atorvastatin Myalgia Low 06/06/2005 Simvastatin Myalgia Low 08/11/2007 Medications Medication Sig Dispensed Refills Start Date End Date Status rosuvastatin (CRESTOR) 10 mg tabletIndications:Mi xed hyperlipidemia Take 1 Tablet (10 mg) by mouth at bedtime. 90 Tablet 3 06/04/2023 Active lisinopriL (PRINIVIL; ZESTRIL) 5 mg tabletIndications:Es sential hypertension Take 1 Tablet (5 mg) by mouth once daily. 90 Tablet 3 06/04/2023 Active acetaminophen (TYLENOL EXTRA STRGTH) 500 mg tablet Take 500 mg by mouth every 4 hours if needed. 07/25/2023 Active warfarin (COUMADIN) 5 mg tabletIndications:Hi story of DVT (deep vein thrombosis),Anticoag ulation monitoring, INR range 2-3,Bilateral pulmonary embolism (HC) Take by mouth 04/08: Hold; 04/09: Hold; 04/10: Hold; 04/11: Hold; 04/12: Hold; 04/13: Hold; Otherwise 2 mg every Sat, Sat; 2.5 mg all other days or as directed. 03/31/2024 Active warfarin (COUMADIN) 2 mg tabletIndications:Hi story of DVT (deep vein thrombosis),Anticoag ulation monitoring, INR range 2-3 Take by mouth 04/08: Hold; 04/09: Hold; 04/10: Hold; 04/11: Hold; 04/12: Hold; 04/13: Hold; Otherwise 2 mg every Tue, Edel; 2.5 mg all other days or as directed. 03/31/2024 Active oxyCODONE (ROXICODONE) 5 mg immediate release tablet Take 5 mg by mouth every 4 hours if needed. 07/25/2023 4 Discontinued (*Patient states no longer taking) warfarin (COUMADIN) 5 mg tabletIndications:Hi story of DVT (deep vein thrombosis),Anticoag ulation monitoring, INR range 2-3,Bilateral pulmonary embolism (HC) Take by mouth 2 mg (2 mg x 1) every Tue, Edel; 2.5 mg (5 mg x 0.5) all other days in the evening OR as directed 35 Tablet 02/18/2024 4 Discontinued (Other - add note to specify (E-cancel not sent)) warfarin (COUMADIN) 2 mg tabletIndications:Hi story of DVT (deep vein thrombosis),Anticoag ulation monitoring, INR range 2-3 Take by mouth 2 mg (2 mg x 1) every Tue, Edel; 2.5 mg (5 mg x 0.5) all other days in the evening OR as directed 30 Tablet 02/18/2024 4 Discontinued (Other - add note to specify (E-cancel not sent)) Active Problems Problem Noted Date Diagnosed Date [...] Maker: Rochelle Menendez Relationship: spouse Phone: H: [phone] W: [phone] Secondary Health Care Agent: Relationship: Phone: Conservator: [...] Encounters Date Type Department Care Team Description 03/31/2024 Anticoagulation (warfarin) [facility] [[email or web address] [address] [place] [address] 1, [facility] Anticoagulation (Lab / OV Pre-Op ) 03/30/2024 2:10 PM CDT Office Visit [address] [address] Salo Cali DO Pre-Op Exam (04/14/24 Left total hip arthroplasty Dr. De La Rosa FAX [phone]) 03/30/2024 Travel 03/30/[address] [address] Meche Anderson MD Anticoagulation (Annual re-enrollment ) 03/24/2024 Orders Only [facility] Scanner 1 scan: (1-Ord) INCOMING RECORDS-MRI, [facility], 03/24/2024 03/09/2024 12:40 PM CDT Ancillary Procedure [address] [address] 03/09/2024 12:00 PM CDT Office Visit [address] [place] [address] Javan Lopez MD Knee Pain/problem (Left knee x 2 weeks after a loud crack ) 03/09/2024 Travel 03/09/2024 Nurse Triage [address] [place] [address] Meche Anderson MD Knee Pain/problem 03/03/2024 10:20 AM CDT Orders Only [address] [place] [address] Lab, [facility] 03/03/2024 Anticoagulation (warfarin) [address] [place] [address] 1, [facility] Anticoagulation 03/03/2024 Travel 02/18/2024 10:10 AM CDT Orders Only [address] [place] [address] Lab, [facility] 02/18/2024 Anticoagulation (warfarin) [address] [place] [address] 1, [facility] Anticoagulation 02/18/2024 Travel 02/18/[address] [place] [address] Meche Anderson MD Refill Request (Warfarin) 02/05/[address] [place] [address] Meche Anderson MD Anticoagulation (OVERDUE #2 reminder) from Last 3 Months Immunizations Name Administration Dates Next Due AMB Influenza, IIV3 (Age >=3 years)(Flu Clinic Only) 06/19/2012 COVID-19 vaccine (Madefire NTAdan 30mcg/0.3mL) MD JENNYV 10/19/2020,09/28/2020 Influenza, High-dose Inactivated 05/22/2018,03/2018 Influenza, High-dose [...] of Communication with Friends and Fami ly 0 03/30/2024 Financial Resource Strain Answer Date R ecorded Difficulty of Paying Living Expenses 3 03/30/2024 Difficulty of Paying Living Expenses Not on file 03/30/2024 Food Insecurity Answer Date Recorded Worried About Running Out of Food in the Last Ye ar 1 03/30/2024 Transportation Needs Answer Date Record ed Lack of Transportation (Medical) 1 03/30/2024 Housing Stability Answer Date Recorded Unable to Pay for Housing in the Last Year 1 03/30/2024 Sex and Gender Information Value Date Recorded Sex Assigned at Not on file Gender Identity Not on file Sexual Orientation Not on file Obstetrics History Last Filed Vital Signs Vital Sign Reading Time Taken Comments Blood Pressure 142/83 03/30/2024 2:17 PM CDT Pulse 65 03/30/2024 2:17 PM CDT Temperature 36.6 ??C (97.8 ??F) 03/30/2024 2:17 PM CD T Respiratory Rate 16 11/04/2021 2:50 PM CDT Oxygen Saturation 99% 03/30/2024 2:17 PM CDT Inhaled Oxygen Concentration - - Weight 92.1 kg (203 lb) 03/30/2024 2:17 PM CDT Height 176.5 cm (5' 9.5) 03/30/2024 2:17 PM CDT Body Mass Index 29.55 03/30/2024 2:17 PM CDT Plan of Treatment Upcoming Encounters Date Type Department Care Team (Late st Contact Info) Description 04/26/2024 10:30 AM CDT Orders Only [address] [address] Lab, [facility] 05/01/2024 11:00 AM CDT Office Visit [address] [phone] Meche Anderson MD [address] [place] [address] Health Maintenance Due Date Last Done Comments Zoster (shingles) series for age 50+ (1 of 2) 1990 Tetanus booster 02/24/2023 02/24/2013 COVID-19 vaccine series (2022- season) 2024 06/01/2022, 06/06/2021, 10/19/2020, Additional history exists Influenza for age 65+ 04/12/2024 06/04/2023 , 06/01/2022, 06/23/2021, Additional history exists Depression screening for age 12+ 06/04/2024 06/04/2023, 06/04/2023, 06/04/2023, Additional history exists Medicare Wellness for age 65+ 06/04/2024 06/04/2023, 02/07/2021 BMI (ht and wt on same day) for age 18+ 03/30/2025 03/30/2024, 03/09/2024, 06/04/2023, Additional history exists Tdap Completed 02/24/2013 Pneumococcal series for age 65+ Completed 7, 08/21/2010 Procedures Procedure Name Priority Date/Time Associated Diagnosis Comments EKG 12 LEAD Routine 03/31/2024 2:35 PM CDT Preop general physical exam WI READING EKG - NO CHARGE, COMP ONLY Routine 03/31/2024 2:34 PM CDT Preop general physical exam CREATININE Routine 03/30/2024 3:17 PM CDT Preop general physical exam POTASSIUM Routine 03/30/2024 3:17 PM CDT Preop general physical exam HEMOGLOBIN STAT 03/30/2024 3:17 PM CDT Preop general physical exam PROTIME-INR STAT 03/30/2024 3:17 PM CDT History of DVT (deep vein thrombosis) Anticoagulation monitoring, INR range 2-3 SCAN CORRESP-IMAGING 03/24/2024 12:00 AM CDT XR KNEE 3 VIEWS LEFT Routine 03/09/2024 12:52 PM CDT Acute pain of left knee PROTIME-INR STAT 03/03/2024 9:44 AM CDT History of DVT (deep vein thrombosis) Anticoagulation monitoring, INR range 2-3 PROTIME-INR STAT 02/18/2024 9:53 AM CDT History of DVT (deep vein thrombosis) Anticoagulation monitoring, INR range 2-3 from Last 3 Months Results * EKG 12 LEAD (03/31/2024 2:35 PM CDT) Salo Cali DO EKG ORD * WI READING EKG - NO CHARGE, COMP ONLY (03/31/2024 2:34 PM CDT) Salo Cali DO PB - PROVIDER READIN GS * HEMOGLOBIN (03/30/2024 3:17 PM CDT) HEMOGLOBIN 13.5 13.5 - 17.5 g/dL 03/30/2024 3:23 PM CDT [facility] MCV 94 80 - 100 fL 03/30/2024 3:23 PM CDT [facility] Blood BLOOD SPECIMEN / Unknown Venipuncture / Unknown 03/30/2024 3:17 PM CDT 03/30/2024 3:19 PM CDT Salo Cali DO HEMATOLOGY [facility] [address] [place] [address], * POTASSIUM (03/30/2024 3:17 PM CDT) Pathologist [facility] POTASSIUM 4.7 3.5 - 5.1 mmol/L 03/30/2024 11:06 PM CDT [facility] Blood BLOOD SPECIMEN / Unknown Venipuncture / Unknown 03/30/2024 3:17 PM CDT 03/30/2024 3:19 PM CDT Salo Cali DO CHEMISTRY Performing Organization Address [facility] Co de Phone Number [facility] [address] [place] [address], * (ABNORMAL) CREATININE (03/30/2024 3:17 PM CDT) eGFR 63(L) >90 mL/min/1.7 3m2 03/30/2024 11:06 PM CDT [facility] Comment:As of 2021, eG FR is calculated by the CKD-EPI creatinine equation without race adjustment. ??eGFR can be influenced by muscle mass, exercise, and diet. ??The reported eGFR is an estimation only and is only applicable if the renal function is stable. CREATININE 1.15 0.70 - 1.20 mg/dL 03/30/2024 11:06 PM CDT [facility] Blood BLOOD SPECIMEN / Unknown Venipuncture / Unknown 03/30/2024 3:17 PM CDT 03/30/2024 3:19 PM CDT Salo Cali DO CHEMISTRY Performing Organization Address [facility] Co de Phone Number [facility] [address] [address], * (ABNORMAL) PROTIME-INR (03/30/2024 3:17 PM CDT) Only the most recent of3 resultswithin the time period is included. INR 2.5(H) <1.3 03/30/2024 10:22 PM CDT [facility] PROTIME 27.4(H) 10.3 - 12.3 sec 03/30/2024 10:22 PM CDT [facility] Blood BLOOD SPECIMEN / Unknown Venipuncture / Unknown 03/30/2024 3:17 PM CDT 03/30/2024 3:19 PM CDT Narrative [facility] - 03/30/2024 10:22 PM CDT ?Therapeutic Range 2.0-3.0 for most anticoagulated [...] is on UFH. Meche Anderson MD HEMATOLOGY Performing Organization Address [facility] Co de Phone Number [facility] [address] [address], [place] * SCAN CORRESP-IMAGING (03/24/2024 12:00 AM CDT) Anatomical Region Laterality Modality Other Scanner OTHER * XR KNEE 3 VIEWS LEFT (03/09/2024 12:52 PM CDT) Anatomical Region Laterality Modality KNEES, KNEE L Computed Radiogr aphy 03/09/2024 1:05 PM CDT Narrative 03/09/2024 1:05 PM CDT For Patients: ??As a result of the Cures Act, medical imaging exams and procedure [...] (Electronically Signed) Javan Lopez MD GENERAL IMAGING from Last 3 Months Advance Directives * Full Code (Latest Code Status on File) Date Activated Date Inactivated Comments 01/26/2011 10:14 PM 01/30/2011 4:08 PM Care Teams Drum Puller Relationship Specialty Start Date End Date Meche Anderson MD [address] [facility] [place] [address] PCP - General 08/16/06
[2024-04-14] MEDS: OXYCODONE (CR) 10 MG TAB.ER.12H PO (06:25)
[2024-04-14] MEDS: CELECOXIB 200 MG CAPSULE PO (06:25)
[2024-04-14] MEDS: ACETAMINOPHEN 500 MG TABLET 1000 MG PO ×2 (06:25→21:28)
[2024-04-14] MEDS: SODIUM CHLORIDE 0.9 % (FLUSH) 10 ML SYRINGE IVF (06:30)
[2024-04-14] MEDS: LACTATED RINGERS 1000 ML 1,000 ML 100 ML IV ×2 (06:30→08:16)
--- NOTE | 2024-04-14 06:42 | SUR.PREOP ---
Patient arrived SOB, states this is new within the last week or two. MDA aware.
[2024-04-14 07:00] LABS: INR 1.27 (0.91-1.10); Prothrombin Time 16.7 Seconds
[2024-04-14] MEDS: fentaNYL 100 MCG/2 ML inj IVP (07:13)
[2024-04-14] MEDS: MIDAZOLAM HCL 1 MG/ML inj IVP (07:13)
--- NOTE | 2024-04-14 07:27 | SUR.PREOP ---
TIME?OUT:?07 PT/Deandre PAIGE RN/Peterson FLANAGAN MDA?VERIFICATION?OF?SURGICAL?SITE,?PROCEDURE,?AND?CONSENT OBTAINED?PRIOR?TO?INVASIVE?PROCEDURE.
--- NOTE | 2024-04-14 07:30 | CRLHL7_ITS ---
For Patients: As a result of the Cures Act, medical imaging exams and procedure reports are released immediately into your electronic medical record. You may view this report before your referring provider. If you have questions, please contact your health care provider. INDICATION: Left hip arthroplasty. TECHNIQUE: Three spot images of the left hip submitted. 14.50 mGy fluoroscopy dose. FINDINGS: Images taken during hip arthroplasty. Dictated by Ryan Mercer MD @ 04/14/2024 11:35:14 AM (Electronically Signed)
[2024-04-14] MEDS: CEFAZOLIN 2 GM INJ IVP (07:40)
[2024-04-14] MEDS: TRANEXAMIC ACID 100 MG/ML INJ 1000 MG IV (07:45)
--- NOTE | 2024-04-14 08:05 | P.NB_ITS ---
Nerve Block Nerve Block Time Seen by Provider: 07:16 Date Seen: 04/14/24 Type of block requested by surgeon for post-operative analgesia: HUEY/LFCN Side: left Time out performed: Yes Verification of patient name: Yes Verification of date of : Yes Site marking: site marked Name of person performing procedure: Rosalino Continuous monitoring Was continuous monitoring of O2 sat, B/P, manager cardiac, recorded every 15 minutes?: Yes Procedure Checklist: sterile prep, needles and gloves Ultrasound guided. Images saved: Yes Medications given in 5ml increments after negative aspiration: Ropivicaine %: 0.5 mL: 30 Needle gauge: 20 Decadron (mg): 10 Precedex (mcg): 25 Patient tolerated procedure well: Yes Additional comments: Needle noted below psoas tendon needle noted adjacent to LFCN Block Charges Block Charge (with Pro Fee): Other Periph Nerve Block Use of Ultrasound Machine for Block: Yes- US Guidance/pain block
--- NOTE | 2024-04-14 08:06 | W.ANESCHARGE ---
Anesthesia Charges Start Date/Time Anesthesia Start Date: 04/14/24 Anesthesia Start Time: 07:30 Stop Date/Time Anesthesia Stop Date: 04/14/24 Anesthesia Stop Time: 10:03 Summary Extremes of Age - Over 70 or under 1: MDA
--- NOTE | 2024-04-14 09:17 | CRLHL7_ITS ---
For Patients: As a result of the Cures Act, medical imaging exams and procedure reports are released immediately into your electronic medical record. You may view this report before your referring provider. If you have questions, please contact your health care provider. Indication: Postop LYLA Technique: AP hip centered in pelvis and lateral view left hip Findings/Impression: Hardware from a left total hip arthroplasty is in satisfactory position. Bone alignment is normal. No sign of acute fracture. Postop changes are within normal limits. Dictated by Ronni Graham MD @ 04/14/2024 11:56:59 AM (Electronically Signed)
--- NOTE | 2024-04-14 09:20 | P.ORPRC_ITS ---
Procedure Note Date of procedure: 04/14/24 Procedure: PREOPERATIVE DIAGNOSIS: Left hip osteoarthritis POSTOPERATIVE DIAGNOSIS: Left hip osteoarthritis NAME OF OPERATION: Left total hip arthroplasty SURGEON: Boston De La Rosa MD COMPUTER AIDED DESIGN DESIGNER: Sabi Callahan PA-C, GIBRAN Hernandez IMPLANTS: 1. [employer] [place] # 56 sector ingrowth cup 2. 36 x 56 +4 neutral polyethylene 3. Actis # 7 standard collared ingrowth stem 4. 36 + 12.0 cobalt chrome femoral head ANESTHESIA: Spinal ESTIMATED BLOOD LOSS: 250 cc COMPLICATIONS: None SPECIMENS: None DRAINS: None PREOPERATIVE ANTIBIOTICS: Ancef 2 grams INDICATIONS: The patient is a 83-year-old with a longstanding history of severe, unrelenting left hip pain secondary to end-stage left hip osteoarthritis. Despite appropriate nonoperative management, including activity modification, use of an assist device, anti-inflammatories, [id number] pain medication, physical therapy and injections, they continue to have pain and disability. Operative intervention was offered. The risks, benefits and expected outcomes were discussed in detail. These included but were not limited to: Infection, bleeding, injury to blood vessel or nerve, venous thromboembolism. All questions were answered to their satisfaction. Use of an office services assistant was necessary throughout the case for patient positioning and safety, soft tissue retraction and closure. PROCEDURE: The patient was placed supine on the [place] table. General anesthesia was administered. The office services assistant made sure the patient was properly positioned. The left hip was prepped and draped in the usual sterile fashion. The image intensifier was brought in for a perfect AP pelvis and a perfect double tear drop AP view of each hip which were used for intraoperative templating with our fluoroscopic guide. An oblique incision was made 3 cm distal and 3 cm lateral to the anterior superior iliac spine. The office services assistant retracted the soft tissues to protect them. Subcutaneous dissection was taken with electrocautery to the superficial fascia. The fascia was divided in line with the incision. Blunt dissection was carried medially to the tensor fascia ezio and sartorius interval. Deep dissection was carried with electrocautery. The circumflex vessels were cauterized and divided. The capsule was exposed and then divided in a T- fashion, tagged with #1 Ethibond sutures. Retractors were placed in the joint, held by the office services assistant. The corkscrew was placed in the femoral head. The neck cut was made in the subcapital region. We made a second neck cut more distal. The napkin ring of bone was removed. The femoral head was removed intact. Acetabular retractors were placed, held by the office services assistant. The labrum was sharply debrided. The capsule was released. The 43 mm reamer was used to the true medial wall. We then enlarged in 2 mm increments using the image intensifier for our reamer placement. We impacted the cup which had excellent purchase. We placed the polyethylene. Attention was then turned to the proximal femur. The limb was placed in 140 degrees of external rotation, maximum extension and adduction. A significant amount of time was spent releasing the capsule to allow us to deliver the femur into the wound and complete the femoral side safely. Retractors were held by the office services assistant throughout the femoral preparation. The gill box operator and canal finder were used. Broaches were used to a stable size. The calcar reamer was used. Trial components were placed. The hip was reduced and was found to be stable with appropriate soft tissue tension. Length and offset had been nicely restored using the image intensifier and our fluoroscopic guide. Trial components were removed. The stem was impacted. We placed the femoral head. Again, the hip was reduced and was found to be stable with appropriate soft tissue tension. Length and offset had been nicely restored. The office services assistant did a three minute dilute Betadine solution soak. The office services assistant irrigated the wound with 3 liters of normal saline via pulse lavage. The office services assistant repaired the anterior capsule with a #1 Vicryl and our previously placed Ethibond sutures. The office services assistant closed the fascia over the tensor fascia ezio with a #1 PDO Stratafix, subcutaneous tissues with 2-0 Vicryl, skin with a running 3-0 Stratafix and glue. A dry dressing was applied by the office services assistant. Sponge and needle counts were correct x 2. The patient tolerated the procedure well; there were no apparent complications. They were awakened and extubated in the operating room, sent to the Post-Anesthesia Care Unit in satisfactory condition. PLAN: 1. The patient will be mobilized with physical therapy, weight-bearing as tolerates 2. The patient's usual dose of Coumadin may be restarted 3. The patient will be discharged once medically appropriate
--- NOTE | 2024-04-14 10:10 | W.ANESCHARGE ---
Anesthesia Charges Start Date/Time Anesthesia Start Date: 04/14/24 Anesthesia Start Time: 07:30 Stop Date/Time Anesthesia Stop Date: 04/14/24 Anesthesia Stop Time: 10:03 Summary Extremes of Age - Over 70 or under 1: HVAC SERVICE TECH
[2024-04-14] MEDS: LACTATED RINGERS 1000 ML 1,000 ML 50 ML IV ×2 (11:31→12:56)
--- NOTE | 2024-04-14 14:27 | SUR.PHASEII ---
Pt tolerated yogurt and water. Pt denies pain. Able to bend legs at knees. Pt states my butt is still numb. VSS. Verbal Report over phone call given to Med/engineering design supervisor. Patient transported to /S via cart. PT, Meche Armas in room at time of arrival. Pt transferred from cart to bed by self. Pt's family in room.
--- NOTE | 2024-04-14 16:00 | P.IMCN_ITS ---
Date of Consult Patient: Christopher Patient Consult date: 04/14/24 Requesting Physician: Orthopedics Primary Care Provider: Meche Anderson MD Consult Narrative Reason for consult: Medical management of comorbidities Narrative: Les Menendez is a 83 year old male who presented to the hospital today for an elective L LYLA with Dr. De La Rosa of Orthopedic Surgery. There were no surgical or anesthetic complications noted during procedure. Patient's H&P reviewed, PCP is Dr. Anderson at the [facility]. Past medical history significant for: PE, on Warfarin (has been holding pre- procedure, INR of 1.27 this morning); pre-DM2. CKD (baseline creatinine 1.3), hyperlipidemia. He typically takes Coumadin 2 mg on Saturday and and 2.5 mg ROW. Postoperative plan: Home with partner Review of Systems Status of ROS: Reports: 10 or more systems reviewed and unremarkable except as noted in History and below PFSH [facility] [place] Medical History (Updated 03/09/24 @ 15:12 by Sabi Esparza PA-C) Hypertension ?I10 - Essential (primary) hypertension (ICD-10) High cholesterol ?E78.00 - Pure hypercholesterolemia, unspecified (ICD-10) Pulmonary embolism ?I26.99 - Other pulmonary embolism without acute cor pulmonale (ICD-10) DVT (deep venous thrombosis) ?I82.409 - Acute embolism and thrombosis of unspecified deep veins of unspecified lower extremity (ICD-10) Surgical History (Updated 04/14/24 @ 16:06 by Claudia Dao MD) Status post left hip replacement ?Z96.642 - Presence of left artificial hip joint (ICD-10) 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) ?Z96.651 - Presence of right artificial knee joint (ICD-10) History of bilateral carpal tunnel release ?Z98.890 - Other specified postprocedural states (ICD-10) Status post total left knee replacement (02/02/20) ?Z96.652 - Presence of left artificial knee joint (ICD-10) Social History (Updated 03/23/24 @ 11:06 by Safia Ruiz ~ [facility], [facility]) Narrative: [employer] former smoker-Quit 1989 What is your current living situation?: I presently have a place to live In the past 12 months, utilities in danger of being shut off: no In past 12 months, lack of transportation kept you from medical appts, meetings, work, or getting things needed for daily living: no In the past 12 mos, have been you worried that your food would run out before you had money to buy more?: never true In the past 12 mos, the food you bought just didn't last and you didn't have money to buy more?: never true Smoking Status: Former smoker What tobacco products do you use: cigarettes Smoking quit date/years: >15 years ago Do you use any of these nicotine containing products: None Second hand tobacco smoke exposure: No How often do you have a drink containing alcohol: never AUDIT-C Alcohol total score: 0 Non-prescribed substance use: denies use Caffeine: Yes How often does anyone, including family, friends and others, physically hurt you : never How often does anyone, including family, friends and others, insult or talk down to you: never How often does anyone, including family, friends and others, threaten you with harm: never How often does anyone, including family, friends and others, scream or curse at you: never Meds Home Medications and Allergies Home Medications ?Medication ?Instructions ?Recorded ?Confirmed ?Type warfarin 5 mg tablet 2.5 mg PO 5XW 05/15/23 04/14/24 History rosuvastatin 10 mg tablet 10 mg PO HS 07/25/23 04/14/24 History lisinopril 5 mg tablet 5 mg PO DAILY 04/06/24 04/14/24 History acetaminophen 500 mg tablet 500 mg PO Q6H PRN 04/10/24 04/14/24 History warfarin 2 mg tablet 2 mg PO 2XW 04/14/24 04/14/24 History Allergies Allergy/AdvReac Type Severity Reaction Status Date / Time atorvastatin Allergy Intermediate body aches Verified 04/14/24 06:14 simvastatin Allergy Unknown Verified 04/14/24 06:14 Exam Narrative: Exam Narrative: GEN: Alert and oriented, no tachypnea. Sitting comfortably in bed HEENT: Normal external ears, EOMIs bilaterally, no scleral icterus CV: RRR, No concerning murmurs R: LCTA bilaterally without concerning wheezing Ext: wwp, no concerning edema, wearing SCDs Skin: No concerning skin lesions or rashes on exposed skin Neuro: Nonfocal Psych: Appropriate Const: Vital Signs, click to edit/add: Vital Signs - 24 hr 04/14/24 06:37 04/14/24 07:13 04/14/24 07:15 Temperature 97.9 F Pulse Rate 76 69 60 Respiratory Rate 20 18 18 Blood Pressure 142/92 H 146/69 H 129/76 Pulse Oximetry 97 99 99 Oxygen Delivery Me thod Room Air Nasal Cannula Nasal Cannula Oxygen Flow Rate 3 3 04/14/24 10:00 04/14/24 10:05 04/14/24 10:10 Temperature 97.2 F L Pulse Rate 58 L 59 L 59 L Respiratory Rate 16 16 16 Blood Pressure 100/60 109/70 101/62 Pulse Oximetry 98 97 96 Oxygen Delivery Me thod Nasal Cannula Nasal Cannula Nasal Cannula Oxygen Flow Rate 4 4 2 04/14/24 10:15 04/14/24 10:20 04/14/24 10:25 Temperature Pulse Rate 59 L 60 59 L Respiratory Rate 16 16 16 Blood Pressure 115/66 109/70 116/70 Pulse Oximetry 96 96 96 Oxygen Delivery Me thod Nasal Cannula Room Air Room Air Oxygen Flow Rate 2 04/14/24 10:30 04/14/24 10:35 04/14/24 10:40 Temperature 97.0 F L 97.4 F L Pulse Rate 60 61 58 L Respiratory Rate 16 16 14 Blood Pressure 117/72 120/75 119/68 Pulse Oximetry 94 94 94 Oxygen Delivery Me thod Room Air Room Air Room Air Oxygen Flow Rate 2 04/14/24 10:45 04/14/24 11:00 04/14/24 11:15 Temperature Pulse Rate 63 60 60 Respiratory Rate 16 16 16 Blood Pressure 128/74 129/75 126/104 H Pulse Oximetry 92 93 93 Oxygen Delivery Me thod Room Air Room Air Room Air Oxygen Flow Rate 04/14/24 11:30 04/14/24 11:45 04/14/24 12:00 Temperature Pulse Rate 63 59 L 71 Respiratory Rate 16 16 16 Blood Pressure 137/80 137/90 H 137/80 Pulse Oximetry 97 99 97 Oxygen Delivery Me thod Nasal Cannula Nasal Cannula Room Air Oxygen Flow Rate 2 2 04/14/24 12:30 04/14/24 13:00 04/14/24 13:15 Temperature Pulse Rate 71 71 71 Respiratory Rate 16 16 16 Blood Pressure 134/106 H 145/88 H 119/62 Pulse Oximetry 94 95 95 Oxygen Delivery Me thod Room Air Room Air Room Air Oxygen Flow Rate 04/14/24 13:30 04/14/24 14:03 Temperature Pulse Rate 68 68 Respiratory Rate 16 16 Blood Pressure 113/88 Pulse Oximetry 94 94 Oxygen Delivery Me thod Room Air Room Air Oxygen Flow Rate 2 Assessment and Plan Assessment and plan (1) Status post left hip replacement: Problem comment: - 04/14/24, Dr. De La Rosa Status: Acute Plan - pain management per orthopedic surgery team - will administer 2.5 mg of warfarin tomorrow morning; patient typically takes his warfarin at night and he will resume home dosing tomorrow evening when he gets home (will get a total of 5 mg tomorrow) - continue home medications for comorbidities - anticipate routine postoperative course
[2024-04-14] MEDS: OXYCODONE 5 MG TABLET PO ×3 (16:12→23:31)
[2024-04-14] MEDS: CEFAZOLIN 2 GM in 0.9 % SODIUM CHLORIDE Mini-bag 100 ML IVPB ×2 (16:13→23:32)
--- NOTE | 2024-04-14 19:22 | PC.NURSE ---
End of Shift: The patient arrived to the floor this afternoon. VSS on RA. Reported mild pain.. PRN med given. L hip dressing CDI. Ice pack to the L hip. CMS intact. Lungs clear. The patient was bladder scanned for [address] Dao was notified. Encouraged to try to void in 30 min. Report was then given to the on coming RN. Ax1 w/ RW and GB. Calls appropriately. Works with therapies in the morning. Plexipulses on bilateral feet. Lesa AMARAL BSN
[2024-04-14] MEDS: SENNOSIDES 1 TAB TABLET 2 TAB PO (21:28)
[2024-04-14] MEDS: ROSUVASTATIN CALCIUM 10 MG TABLET PO (21:28)
[2024-04-14] MEDS: CALCIUM CARBONATE 500 MG CHEW PO (23:31)
[2024-04-15 03:00] VITALS: BP 126/68; PULSE 80; RESP 16; TEMP 36.5; O2SAT 93
[2024-04-15] MEDS: ACETAMINOPHEN 500 MG TABLET 1000 MG PO ×2 (04:33→08:03)
[2024-04-15] MEDS: OXYCODONE 5 MG TABLET PO ×2 (04:34→08:04)
[2024-04-15] MEDS: CALCIUM CARBONATE 500 MG CHEW PO ×3 (05:06→10:09)
--- NOTE | 2024-04-15 06:36 | PC.NURSE ---
End of shift [id number]: Pleasant and cooperative with cares. Pain to left hip well managed with current regimen. Dressing to left hip clean, dry and intact. Non pitting edema to surgical site, patient utilizing ice packs for discomfort and swelling. CMS intact to LLE, pedal pulses present. Patient SBA with transfers and ambulation with walker. Patient reporting increased indigestion and requested Tums, new order received from Dr. Dao for Tums, medication effective. Denies any nausea or vomiting. Continent of bladder, patient up x 4 to void, patient requested to not utilize toilet hat after 2 measured voids.
[2024-04-15 06:49] LABS: Hematocrit 33.4 % (37.0-53.0); Hemoglobin* 10.9 gm/dL (13.5-17.5); Immature Granulocytes Abs Auto 0.02 K/uL (0.00-0.30); Immature Granulocytes Pct Auto 0.2 %; Lymphocytes Percent Auto 5.2 % (20-44); Mean Corpuscular HGB Conc 33 gm/dL (32-36); Mean Corpuscular Hemoglobin 31 pg (26-34); Mean Corpuscular Volume 96 fL (80-100); Monocytes Percent Auto 7.6 % (0.0-11.0); Platelet Count* 103 K/uL (140-440); RDW Coefficient of Variation % 13.7 % (11.5-15.5); Red Blood Count 3.49 m/uL (4.30-5.90); White Blood Count* 10.11 K/uL (4.50-11.00)
[2024-04-15 06:52] LABS: Slide Review Reflex No
[2024-04-15 07:00] VITALS: BP 123/72; PULSE 79; RESP 16; TEMP 36.7; O2SAT 93
[2024-04-15 07:02] LABS: Sodium* 134 mmol/L (135-149)
[2024-04-15 07:05] LABS: Creatinine* 1.1 mg/dL (0.5-1.5); Est. Creatinine Clearance* 50.88; Estimated Glomerular Filt Rate 67 ml/min
[2024-04-15 07:06] LABS: Blood Urea Nitrogen* 25 mg/dL (7-30)
[2024-04-15] MEDS: WARFARIN 2.5 MG TABLET PO (08:04)
--- NOTE | 2024-04-15 09:39 | PM.ORPN ---
Subjective Subjective Time Seen by Provider: 07:00 Date Seen: 04/15/24 Principal diagnosis: Status post left hip replacement Interval history: Andrews is comfortable at rest. He states he has discomfort with movement. He plans to discharged today to home. Ortho Exam Narrative Exam Narrative: Alert and oriented x3. Patient is in no acute distress. Converses without labored breathing. Hearing is grossly intact. Ambulates with a walker. Examination of the left hip shows mild edema. Dressing is intact. No erythema or warmth or sign of infection. CMS intact left lower extremity. Calves are soft and nontender. Const Vital Signs, click to edit/add: Vital Signs - 24 hr 04/14/24 10:00 04/14/24 10:05 04/14/24 10:10 Temperature 97.2 F L Pulse Rate 58 L 59 L 59 L Pulse Rate [Pulse Oximeter] Respiratory Rate 16 16 16 Blood Pressure 100/60 109/70 101/62 Blood Pressure [Left Arm] Pulse Oximetry 98 97 96 Oxygen Delivery Method Nasal Cannula Nasal Cannula Nasal Cannula Oxygen Flow Rate 4 4 2 04/14/24 10:15 04/14/24 10:20 04/14/24 10:25 Temperature Pulse Rate 59 L 60 59 L Pulse Rate [Pulse Oximeter] Respiratory Rate 16 16 16 Blood Pressure 115/66 109/70 116/70 Blood Pressure [Left Arm] Pulse Oximetry 96 96 96 Oxygen Delivery Method Nasal Cannula Room Air Room Air Oxygen Flow Rate 2 04/14/24 10:30 04/14/24 10:35 04/14/24 10:40 Temperature 97.0 F L 97.4 F L Pulse Rate 60 61 58 L Pulse Rate [Pulse Oximeter] Respiratory Rate 16 16 14 Blood Pressure 117/72 120/75 119/68 Blood Pressure [Left Arm] Pulse Oximetry 94 94 94 Oxygen Delivery Method Room Air Room Air Room Air Oxygen Flow Rate 2 04/14/24 10:45 04/14/24 11:00 04/14/24 11:15 Temperature Pulse Rate 63 60 60 Pulse Rate [Pulse Oximeter] Respiratory Rate 16 16 16 Blood Pressure 128/74 129/75 126/104 H Blood Pressure [Left Arm] Pulse Oximetry 92 93 93 Oxygen Delivery Method Room Air Room Air Room Air Oxygen Flow Rate 04/14/24 11:30 04/14/24 11:45 04/14/24 12:00 Temperature Pulse Rate 63 59 L 71 Pulse Rate [Pulse Oximeter] Respiratory Rate 16 16 16 Blood Pressure 137/80 137/90 H 137/80 Blood Pressure [Left Arm] Pulse Oximetry 97 99 97 Oxygen Delivery Method Nasal Cannula Nasal Cannula Room Air Oxygen Flow Rate 2 2 04/14/24 12:30 04/14/24 13:00 04/14/24 13:15 Temperature Pulse Rate 71 71 71 Pulse Rate [Pulse Oximeter] Respiratory Rate 16 16 16 Blood Pressure 134/106 H 145/88 H 119/62 Blood Pressure [Left Arm] Pulse Oximetry 94 95 95 Oxygen Delivery Method Room Air Room Air Room Air Oxygen Flow Rate 04/14/24 13:30 04/14/24 14:03 04/14/24 14:30 Temperature 97.7 F Pulse Rate 68 68 65 Pulse Rate [Pulse Oximeter] Respiratory Rate 16 16 16 Blood Pressure 113/88 124/75 Blood Pressure [Left Arm] Pulse Oximetry 94 94 93 Oxygen Delivery Method Room Air Room Air Room Air Oxygen Flow Rate 2 04/14/24 15:30 04/14/24 16:00 04/14/24 16:30 Temperature 97.7 F 97.7 F 97.8 F Pulse Rate 67 67 68 Pulse Rate [Pulse Oximeter] Respiratory Rate 18 16 18 Blood Pressure 114/73 107/83 107/83 Blood Pressure [Left Arm] Pulse Oximetry 96 96 96 Oxygen Delivery Method Room Air Room Air Oxygen Flow Rate 04/14/24 16:40 04/14/24 16:40 04/14/24 19:55 Temperature 97.8 F Pulse Rate Pulse Rate [Pulse Oximeter] 82 Respiratory Rate 16 16 16 Blood Pressure Blood Pressure [Left Arm] 112/68 Pulse Oximetry 95 96 Oxygen Delivery Method Room Air Room Air Oxygen Flow Rate 04/14/24 23:00 04/14/24 23:00 04/14/24 23:00 Temperature 97.7 F Pulse Rate Pulse Rate [Pulse Oximeter] 73 Respiratory Rate 18 18 18 Blood Pressure Blood Pressure [Left Arm] 112/73 Pulse Oximetry 94 94 Oxygen Delivery Method Room Air Room Air Oxygen Flow Rate 04/15/24 03:00 04/15/24 07:00 04/15/24 07:00 Temperature 97.7 F 98.1 F Pulse Rate Pulse Rate [Pulse Oximeter] 80 79 Respiratory Rate 16 16 16 Blood Pressure Blood Pressure [Left Arm] 126/68 123/72 Pulse Oximetry 93 93 93 Oxygen Delivery Method Room Air Room Air Room Air Oxygen Flow Rate 04/15/24 07:00 Temperature Pulse Rate Pulse Rate [Pulse Oximeter] 79 Respiratory Rate 16 Blood Pressure Blood Pressure [Left Arm] Pulse Oximetry Oxygen Delivery Method Oxygen Flow Rate Assessment and Plan Assessment and plan (1) Status post left hip replacement: Problem details: - 04/14/24, Dr. De La Rosa Status: Acute Assessment and Plan: Plan for discharge is today, and when they meets discharge criteria. DVT prophylaxis upon discharge includes warfarin. He was on warfarin preoperatively. Dr. Anderson monitors him and he has an appointment with her on 04/26/2024. He should have his INR checked on Saturday. Staff will assist in coordinating this. Family provider to monitor INR dosing. Remove dressing 1 week. Observe wound and phone Orthopedics with any questions or concerns Use Ice on operative hip unrestricted. Return to clinic in 1 week with PA for a wound check Return to clinic in 6 weeks with surgeon Minimize narcotic use. Wean off and discontinue soon as possible. Activities as tolerated. No strenuous activity. Attend outpt PT
[2024-04-15 11:00] VITALS: BP 120/69; PULSE 76; RESP 16; TEMP 36.6; O2SAT 98
--- NOTE | 2024-04-15 11:27 | PM.EN ---
Chart Event Note Date Seen: 04/15/24 Chart Event Note: Patient is POD#1 s/p L LYLA with plan to discharge home with spouse. Patient's nurse reported to me that when getting out of bed late this morning, patient became flushed and dizzy, initially described as vertigo. Vitally stable. Upon entering the room, perhaps 15 minutes later, patient is sitting up in a chair, appears well. Family at bedside. Symptoms have completely subsided. Tells me a similar episode happened following his knee replacement surgery. He tells me he was lying in bed and felt as though he needed to belch so set up on the edge of the bed. Was able to belch but then became dizzy and diaphoretic. Denies headache. Denies chest pain or shortness of breath. Denied any nausea or vomiting. Reports not sleeping well last night, only finally falling asleep around 5:00 a.m.. Did take an oxycodone on an empty stomach shortly thereafter. Has not yet had any breakfast. Currently, feeling well, his normal self. Has ordered some food. Still plans to discharge home after following up with PT and ambulating stairs. Relatable past medical history includes vertigo, as well as previous similar episode following previous ortho surgery. On physical exam, heart regular rate and rhythm, lungs clear to auscultation bilaterally. No focal neurological findings. Given this information and a benign exam, do not believe this is a CVA. No further workup at this time. Okay to discharge to home if remains stable without recurrence.
--- NOTE | 2024-04-15 12:24 | PC.NURSE ---
Nursing discharge note: Pt has been A&O, afebrile and VSS on day of discharge. Pt reports pain in left hip rating 5/10 with movement and 3/10 at rest. Pain has been adequately controlled with PRN oxycodone, last given @ 0805. Dressing to left anterior hip is C/D/I with non-pitting edema around incision and down leg. Active ice in place on/off throughout the morning. Pt had an episode of dizziness & diaphoresis at 1000 which caused him to refuse therapy. Blood sugar checked @ 143 and BP was WNL. Pt reported not having anything to eat so the oxycodone was on an empty stomach. With time passed and getting a substantial breakfast, he was feeling better. rounded with patient and cleared him for D/C. PIV in right FA was removed, catheter intact. At time of discharge, patient denied any dizziness or N/V. Discharge education was reviewed with patient and his S/O Gavi who both verbalized understanding. He was discharged home via W/C accompanied by JUANITA and S/O at 1220.
== END 2024-04-15 12:20 | disposition home or self-care (01) ==
LOC: OR 06:03 → MEDSURG 04-15 09:30
PROVIDERS: Anesthesiology; Family Medicine; PCP Internal Medicine; Visit Provider Orthopaedic Surgery
PROC: (CPT 27130; principal; 2024-04-14 07:30)
DX: M16.12 Unilateral primary osteoarthritis, left hip (principal); G89.18 Other acute postprocedural pain; R73.03 Prediabetes; R23.2 Flushing; R42 Dizziness and giddiness; Z86.711 Personal history of pulmonary embolism; Z86.718 Personal history of other venous thrombosis and embolism; Z79.01 Long term (current) use of anticoagulants; I12.9 Hypertensive chronic kidney disease with stage 1 through stage 4 chronic kidney disease, or unspecified chronic kidney disease; N18.31 Chronic kidney disease, stage 3a; E78.2 Mixed hyperlipidemia
CPT/HCPCS: 27130; 01214; 36415; 51798; 64450; 73501; 76000; 76942; 82565; 84132; 84295; 84520; 85025; 85610; 86850; 86900; 86901; 97110; 97116; 97161; 97166; 97530; 97535; 99100; A9270; C1776; J0690; J1100; J2250; J2371; J2405; J2704; J2795; J3010; J7120

== ENCOUNTER 2024-06-17 11:28 | Outpatient (CLI) | payer MEDICARE, SELFPAY ==
--- OUTSIDE RECORDS SUMMARY | 2024-06-17 11:32 | XMS_ITS | Clinical Summary ---
Author Organization [facility] Address [place], [place] [address] Care Team Providers Care Application Packaging Consultant Name Role Phone Meche Anderson MD Primary Care Provider [phone] Allergies Active Allergy Reactions Criticality Noted Date [...] oxyCODONE (ROXICODONE) 5 mg immediate release tablet TAKE 1/2 TO 1 TABLET (2.5-5MG) BY MOUTH EVERY 4 TO 6 HOURS NEEDED FOR PAIN MAX OF 6 TABLETS PER DAY 2024 Active warfarin (COUMADIN) 2 mg tabletIndications:Hi story of DVT (deep vein thrombosis),Anticoag ulation monitoring, INR range 2-3,Bilateral pulmonary embolism (HC) Take by mouth 2 mg (2 mg x 1) every day or as directed. 06/17/2024 Active warfarin (COUMADIN) 5 mg tabletIndications:Hi story of DVT (deep vein thrombosis),Anticoag ulation monitoring, INR range 2-3,Bilateral pulmonary embolism (HC) Not currently using 06/17/2024 Active warfarin (COUMADIN) 5 mg tabletIndications:Hi story of DVT (deep vein thrombosis),Anticoag ulation monitoring, INR range 2-3,Bilateral pulmonary embolism (HC) Take by mouth 2.5 mg (5 mg x 0.5) every Mon; 2 mg (2 mg x 1) all other days in the evening OR as directed 05/04/2024 4 Discontinued (Other - add note to specify (E-cancel not sent)) warfarin (COUMADIN) 2 mg tabletIndications:Hi story of DVT (deep vein thrombosis),Anticoag ulation monitoring, INR range 2-3,Bilateral pulmonary embolism (HC) Take by mouth 2.5 mg (5 mg x 0.5) every Mon; 2 mg (2 mg x 1) all other days in the evening OR as directed 78 Tablet 05/04/2024 4 Discontinued (Other - add note to specify (E-cancel not sent)) Active Problems Problem Noted Date Diagnosed Date Chronic pain of right knee 06/04/2023 Nocturnal muscle cramps 06/04/2023 Stage 3a chronic kidney disease 06/04/2023 Essential hypertension 04/17/2022 Prediabetes 12/20/2020 Venous insufficiency 07/31/2016 History of DVT (deep vein thrombosis) 01/27/2015 Anticoagulation monitoring, INR range 2-3 2012 Mixed hyperlipidemia 02/20/2011 Advance care planning 02/16/2011 Overview (02/16/2011): Patient has identified Decision Maker(s): Yes Add Health Care Agents: Yes Decision Maker(s): Primary Decision Maker: Rochelle Menendez Relationship: spouse Phone: H: [phone] W: [phone] Secondary Health Care Agent: Relationship: Phone: Conservator: [...] Encounters Date Type Department Care Team Description 06/17/2024 10:00 AM ACADEMIC AFFAIRS VICE PRESIDENT [address] [address] Lab, [facility] 06/17/2024 Anticoagulation ([address]farin) [address] [address] 1, [facility] Anticoagulation (Lab ) 06/17/2024 Travel 06/11/2024 [address] [address] Meche Anderson MD Anticoagulation (Lab Orders) 05/19/2024 10:10 AM CDT Orders [address] [address] Lab, [facility] 05/19/2024 Anticoagulation ([address]farin) [address] [address] 1, [facility] Anticoagulation 05/19/2024 Travel 05/14/[address] [place] [address] Meche Anderson MD Anticoagulation (Lab order update/) 05/01/2024 11:00 AM CDT Office Visit [address] [place] [address] Meche Anderson MD Hospital F/U (Left hip replacement. Just started PT) 05/01/2024 Anticoagulation (warfarin) [address] [place] [address] 1, [facility] Anticoagulation; Refill Request (Warfarin 2mg) 05/01/2024 Travel 04/27/2024 Anticoagulation (warfarin) [address] [place] [address] 1, [facility] Anticoagulation 04/26/2024 10:30 AM CDT Orders Only [address] [place] [address] Lab, [facility] 04/26/2024 Travel 04/14/2024 Orders Only [facility] Scanner 1 scan: (1-Ord) [facility], HIP LT 1V, 04/14/2024 04/14/2024 Orders Only [facility] Scanner 1 scan: (1-Ord) [facility], HIP LT POST OP, 04/14/2024 03/31/2024 Anticoagulation (warfarin) [facility] [address] [place] [address] 1, [facility] Anticoagulation (Lab / OV Pre-Op ) 03/30/2024 2:10 PM CDT Office Visit [facility] [address] [place] [address] Salo Cali DO Pre-Op Exam (04/14/[address] Left total hip arthroplasty Dr. De La Rosa FAX [phone]) 03/30/2024 Travel 03/30/[address] [place] [address] Meche Anderson MD Anticoagulation (Annual re-enrollment ) 03/24/2024 Orders Only [facility] Scanner 1 scan: (1-Ord) INCOMING RECORDS-MRI, [facility], 03/24/2024 from Last 3 Months Immunizations Name Administration Dates Next Due AMB Influenza, IIV3 (Age >=3 years)(Flu Clinic Only) 06/19/2012 COVID-19 vaccine ([facility] 30mcg/0.3mL) PF, MDV 10/19/2020,09/28/2020 Influenza, High-dose Inactivated [...] 0 06/04/2023 Social Connections Answer Date Recorded Do you often feel lonely or isolated from those around you? 0 03/30/2024 Financial Resource Strain Answer Date R ecorded Difficulty of Paying Living Expenses 3 03/30/2024 Difficulty of Paying Living Expenses Not on file 03/30/2024 Food Insecurity Answer Date Recorded Do you worry your food will run out before you are able to buy more? 1 03/30/2024 Transportation Needs Answer Date Record ed Does lack of transportation keep you from medica l appointments? 1 03/30/2024 Does lack of transportation keep you from work, meetings or getting things that you need? 1 03/30/2024 Housing Stability Answer Date Recorded What is your housing situation today? 1 03/30/2024 Sex and Gender Information Value Date Recorded Sex Assigned at Not on file Gender Identity Not on file Sexual Orientation Not on file Obstetrics History Last Filed Vital Signs Vital Sign Reading Time Taken Comments Blood Pressure 122/56 05/01/2024 11:58 AM CDT Pulse 70 05/01/2024 11:58 AM CDT Temperature 36.6 ??C (97.8 ??F) 03/30/2024 2:17 PM CD T Respiratory Rate 16 11/04/2021 2:50 PM CDT Oxygen Saturation 97% 05/01/2024 11:58 AM CDT Inhaled Oxygen Concentration - - Weight 91.2 kg (201 lb) 05/01/2024 11:58 AM CDT Height 176.5 cm (5' 9.5) 03/30/2024 2:17 PM CDT Body Mass Index 29.26 03/30/2024 2:17 PM CDT Plan of Treatment Upcoming Encounters Date Type Department Care Team (Late st Contact Info) Description 07/15/2024 10:10 AM ACADEMIC AFFAIRS VICE PRESIDENT Orders Only [address] [address] Lab, [facility] Due Date Last Done Comments Zoster (shingles) series for age 50+ (1 of 2) 1990 RSV vaccine for adults or (1 - 1-dose 75+ series) 2015 Tetanus booster 02/24/2023 02/24/2013 COVID-19 vaccine series ( season) 2024 06/01/2022, 06/06/2021, 10/19/2020, Additional history [...] Procedure Name Priority Date/Time Associated Diagnosis Comments PROTIME-INR Routine 06/17/2024 9:50 AM ACADEMIC AFFAIRS VICE PRESIDENT History of DVT (deep vein thrombosis) Anticoagulation monitoring, INR range 2-3 PROTIME-INR STAT 05/19/2024 10:00 AM CDT History of DVT (deep vein thrombosis) Anticoagulation monitoring, INR range 2-3 PROTIME-INR STAT 05/01/2024 11:04 AM CDT History of DVT (deep vein thrombosis) Anticoagulation monitoring, INR range 2-3 PROTIME-INR STAT 04/26/2024 10:43 AM CDT History of DVT (deep vein thrombosis) Anticoagulation monitoring, INR range 2-3 SCAN-RADIOLOGY REPORT 04/14/2024 12:00 AM CDT SCAN-RADIOLOGY REPORT 04/14/2024 12:00 AM CDT EKG 12 LEAD Routine 03/31/2024 2:35 PM CDT Preop general physical exam GA READING EKG - NO CHARGE, COMP ONLY [...] 2-3 SCAN CORRESP-IMAGING 03/24/2024 12:00 AM CDT from Last 3 Months Results * (ABNORMAL) PROTIME-INR [[id number]] - Standing Order (06/17/2024 9:50 AM ACADEMIC AFFAIRS VICE PRESIDENT) Only the most recent of5 resultswithin the time period is included. INR 3.2(H) <1.3 06/17/2024 10:14 AM ACADEMIC AFFAIRS VICE PRESIDENT [facility] PROTIME 36.7(H) 10.6 - 12.4 sec 06/17/2024 10:14 AM ACADEMIC AFFAIRS VICE PRESIDENT [facility] Blood BLOOD SPECIMEN / Unknown [facility] / Unknown 06/17/2024 9:50 AM ACADEMIC AFFAIRS VICE PRESIDENT 06/17/2024 9:57 AM ACADEMIC AFFAIRS VICE PRESIDENT Narrative [facility] - 06/17/2024 10:14 AM ACADEMIC AFFAIRS VICE PRESIDENT ?Therapeutic Range 2.0-3.0 for most anticoagulated patients [...] is on UFH. Meche Anderson MD HEMATOLOGY [facility] [address] [place], [place] [id number] * SCAN-RADIOLOGY REPORT (04/14/2024 12:00 AM CDT) Only the most recent of2 resultswithin the time period is included. Anatomical Region Laterality Modality Other Scanner OTHER * EKG 12 LEAD (03/31/2024 2:35 PM CDT) Salo Cali DO EKG ORD * GA READING EKG - NO CHARGE, COMP ONLY (03/31/2024 2:34 PM CDT) Salo Cali DO PB - PROVIDER READIN GS * HEMOGLOBIN (03/30/2024 3:17 PM CDT) HEMOGLOBIN 13.5 13.5 - 17.5 g/dL 03/30/2024 3:23 PM CDT [facility] MCV 94 80 - 100 fL 03/30/2024 3:23 PM CDT [facility] Blood BLOOD SPECIMEN / Unknown Venipuncture / Unknown 03/30/2024 3:17 PM CDT 03/30/2024 3:19 PM CDT Salo Cali DO HEMATOLOGY [facility] [address] [place] [address], * POTASSIUM (03/30/2024 3:17 PM CDT) Pathologist [facility] POTASSIUM 4.7 3.5 - 5.1 mmol/L 03/30/2024 11:06 PM CDT [facility] Blood BLOOD SPECIMEN / Unknown Venipuncture / Unknown 03/30/2024 3:17 PM CDT 03/30/2024 3:19 PM CDT Salo Cali DO CHEMISTRY [facility] [address] [place] [address], [place] * (ABNORMAL) CREATININE (03/30/2024 3:17 PM CDT) Pathologist [facility] eGFR 63(L) >90 mL/min/1.7 3m2 03/30/2024 11:06 PM CDT [facility] Comment:As of 2021, eG FR is calculated by the CKD-EPI creatinine equation without race adjustment. ??eGFR can be influenced by muscle mass, exercise, and diet. ??The reported eGFR is an estimation only and is only applicable if the renal function is stable. CREATININE 1.15 0.70 - 1.20 mg/dL 03/30/2024 11:06 PM CDT [facility] Blood BLOOD SPECIMEN / Unknown Venipuncture / Unknown 03/30/2024 3:17 PM CDT 03/30/2024 3:19 PM CDT Saloanaya Garcia Karely MEJIA CHEMISTRY [facility] [address] [place] [address], * SCAN CORRESP-IMAGING (03/24/2024 12:00 AM CDT) Anatomical Region Laterality Modality Other Scanner OTHER from Last 3 Months Advance Directives * Full Code (Latest Code Status on File) Date Activated Date Inactivated Comments 01/26/2011 10:14 PM 01/30/2011 4:08 PM Care Teams Application Packaging Consultant Relationship Specialty Start Date End Date Meche Anderson MD [address] [place] [address] [id number] PCP - General 08/16/06
--- NOTE | 2024-06-17 13:45 | MR_ITS ---
[address] [address] Phone:?[phone] Fax:?[phone] Referring Physician Information: Letitia Dewey [address] [facility] [address] Phone:?[phone] Fax:?[phone] Patient:Jesus Manuel Menendez D.O.B:?1940 Sex:?Male Phone:?[phone] [facility] MRN:?[id number] Exam Date:?06/17/2024 EXAM: MRI EXAMINATION OF THE RIGHT HIP CLINICAL INFORMATION: Male, 84 years old, with right hip pain. INDICATION: Evaluate for internal derangement. PRIOR SURGERY: None reported. PLAIN FILMS: None available. COMPARISONS: No prior MRIs available. TECHNICAL INFORMATION: Using a 1.5T MR scanner and a localizing surface coil: coronals: PD, T2 sagittals: PD, T2 oblique axials: PD straight axials: PDFS coronals: T1, STIR of pelvis and hips SEDATION: None CONTRAST: None FINDINGS: Hip joint: Moderate hip joint effusion. Moderate-marked generalized thinning of the articular cartilage throughout the right hip joint with near full-thickness chondral loss posterosuperiorly. No intra-articular bodies. Labrum: Intrasubstance degeneration and poorly defined fraying/tearing of the anterior through superior labrum (axial PD oblique series 6 images 5-13). Proximal femur: Marked bone marrow edema is present throughout the superior aspect of the femoral head with mild cortical flattening and subchondral trabecular microfracturing. No evidence of a more well-defined fracture. No avascular necrosis. Mild-moderate marginal osteophytosis. No convincing femoral cam morphology. Acetabulum: No subchondral cysts, periacetabular ossicles or marrow edema. Mild-moderate marginal osteophytosis. Version: There appears decreased cranial acetabular anteversion without convincing retroversion. Coverage: Right lateral center edge (CE) angle measures approximately 41? (normal 25?-39?), midline coronal series 4 image 12, corrected for pelvic obliquity. Ligamentum teres: Ligamentum teres is intact and unremarkable. Iliofemoral ligament: The iliofemoral ligament is intact without thickening. Pelvis osseous structures: Sacral ala and sacroiliac joints: No stress/insufficiency fractures or marrow edema/pathology. No demonstrable sacroiliitis. Pubic rami and pubic symphysis: No stress/insufficiency fractures or marrow edema/pathology. Normal alignment without hypertrophy or evidence of ongoing osteitis pubis. Myotendinous structures: Gluteus abductors: Mild gluteus minimus tendinopathy, without tear. Adductors: No demonstrable tendinopathy or strain/tear. Hamstrings: Intact semimembranosus, semitendinosus and biceps femoris tendons, without tendinopathy or tear. Flexors: Intact iliopsoas and rectus femoris, without strain/tear. External rotators: Intact, without demonstrable ischiofemoral impingement. Gluteal aponeurotic fascia and IT band: Unremarkable. Bursae: No demonstrable trochanteric, iliopsoas, or iliopectineal bursitis. Intrapelvic contents: Free fluid: No free fluid seen within the pelvis. Pelvic viscera: No discrete intrapelvic mass is identified. Lymph nodes: No lymphadenopathy by MRI size criteria. Neurovascular structures: No discrete cyst, mass or other compression upon the portions visualized of sciatic or femoral nerves. Lumbar spine: The visualized portions of the lower lumbar spine are unremarkable. IMPRESSION: 1. 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 2. Subtle subchondral trabecular microfracturing in the superior aspect of the femoral head, with extensive surrounding bone marrow edema. No evidence of a more well-defined fracture or avascular necrosis. 3. Intrasubstance degeneration poorly defined fraying/tearing of the anterior through superior labrum, which is of doubtful clinical significance. 4. Moderate lower lumbar spondylosis at L5-S1, which is incompletely evaluated on this study. 5. Mild gluteus minimus tendinopathy, without tear. BC Electronically signed on 06/17/2024 1:29:00 PM by Hua Davila M.D.
== END 2024-06-17 11:29 | disposition home or self-care (01) ==
LOC: MRI 11:30
PROVIDERS: PCP Internal Medicine; Visit Provider Physician Assistant
DX: M25.551 Pain in right hip (principal); M25.451 Effusion, right hip; M47.896 Other spondylosis, lumbar region
CPT/HCPCS: 73721

== ENCOUNTER 2024-07-16 10:50 | Day surgery (SDC) | payer MEDICARE, SELFPAY ==
[2024-07-16] VITALS (23 sets, daily range): BP systolic 102–174; BP diastolic 60–100; PULSE 60–80; RESP 14–20; TEMP 35.6–37.3; O2SAT 90–100; BMI 30.6
--- OUTSIDE RECORDS SUMMARY | 2024-07-16 10:54 | XMS_ITS | Clinical Summary ---
Author Organization [employer] [facility] Address [place], [place] [address] Care Team Providers Care Vp Public Relations Name Role Phone Meche Anderson MD Primary Care Provider [phone] Allergies Active Allergy Reactions Criticality Noted Date Comments Atorvastatin Myalgia Low 06/06/2005 Simvastatin Myalgia Low 08/11/2007 Medications Medication Sig Dispensed Refills Start Date End Date Status rosuvastatin (CRESTOR) 10 mg tabletIndications:Mi xed hyperlipidemia Take 1 Tablet (10 mg) by mouth at bedtime. 90 Tablet 3 06/04/2023 Active acetaminophen (TYLENOL EXTRA STRGTH) 500 mg tablet Take 500 mg by mouth every 4 hours if needed. 07/25/2023 Active warfarin (COUMADIN) 5 mg tabletIndications:Hi story of DVT (deep vein thrombosis),Anticoag ulation monitoring, INR range 2-3,Bilateral pulmonary embolism (HC) Not currently using 06/17/2024 Active warfarin (COUMADIN) 2 mg tabletIndications:Hi story of DVT (deep vein thrombosis),Anticoag ulation monitoring, INR range 2-3,Bilateral pulmonary embolism (HC) Take by mouth 07/25: Hold; 07/26: Hold; 07/27: Hold; 07/28: Hold; 07/29: Hold; Otherwise 2 mg every day in the evening OR as directed 06/23/2024 Active lisinopriL (PRINIVIL; ZESTRIL) 5 mg tabletIndications:Es sential hypertension Take 1 Tablet (5 mg) by mouth once daily. 90 Tablet 07/13/2024 Active lisinopriL (PRINIVIL; ZESTRIL) 5 mg tabletIndications:Es sential hypertension Take 1 Tablet (5 mg) by mouth once daily. 90 Tablet 3 06/04/2023 4 Discontinued (Reorder (E-cancel not sent)) oxyCODONE (ROXICODONE) 5 mg immediate release tablet TAKE 1/2 TO 1 TABLET (2.5-5MG) BY MOUTH EVERY 4 TO 6 HOURS NEEDED FOR PAIN MAX OF 6 TABLETS PER DAY 2024 4 Discontinued (*Med complete/Reg imen complete/Lev el of care change) warfarin (COUMADIN) 5 mg tabletIndications:Hi story of [...] 1) every day or as directed. 06/17/2024 4 Discontinued (Other - add note to specify (E-cancel not sent)) Active Problems Problem Noted Date Diagnosed Date Chronic pain of right knee 06/04/2023 Nocturnal muscle cramps 06/04/2023 Stage 3a chronic kidney disease 06/04/2023 Essential hypertension 04/17/2022 Prediabetes 12/20/2020 Venous insufficiency 07/31/2016 History of DVT (deep vein thrombosis) 01/27/2015 Anticoagulation monitoring, INR range 2-3 02/26/ 2013 Mixed hyperlipidemia 02/20/2011 Advance care planning 02/16/2011 Overview (02/16/2011): Patient has identified Decision Maker(s): Yes Add Health Care Agents: Yes Decision Maker(s): Primary Decision Maker: Rochelle Menendez Relationship: spouse Phone: H: [phone] W: [phone] Secondary Health Care Agent: Relationship: Phone: Conservator: Relationship: Phone: Guardian: Relationship: Phone: Patient has Advance Care Plan Documents (Health Care Directive, POLST): No, Pt not interested in HCD at this time.. Patient has identified Specific Treatment Preferences: No Specific limits to treatment preferences NOT identified: ASSUME FULL TREATMENT. 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 01/28/2011 02/20/2011 Thrombocytopenia 01/20/2011 07/12/2024 DVT (deep venous thrombosis) 05/07/2010 01/27/2015 Bilateral pulmonary embolism 04/14/2010 10/16/2019 Impaired fasting glucose Left carpal tunnel syndrome 10/16/2019 Right carpal tunnel syndrome 10/16/2019 Encounters Date Type Department Care Team Description 07/15/[address] [address] Meche Anderson MD Refill Request (rosuvastatin) 07/10/2024 Refill [facility] [address] [place] [address] Meche Anderson MD Refill Request (Lisinopril) 07/08/2024 1:00 PM PRICING/SIGNAGE TEAM MEMBER Office Visit [facility] [address] [place] [address] Garcia Vasquez MD Preoperative Exam (RIGHT HIP SURGERY/07/16/24/DR. CATA ACEVEDO /[facility]/) 07/08/2024 Travel 06/23/2024 Anticoagulation (warfarin) [address] [place] [address] 1, [facility] Anticoagulation (Chart update) 06/23/[address] [place] [address] Meche Anderson MD Anticoagulation (07/30/2024 Right hip surgery) 06/23/2024 Anticoagulation (warfarin) [address], [place] [address] Meche Anderson MD Error-please disregard; Error-please disregard (opened in error) 06/17/2024 10:00 AM PRICING/SIGNAGE TEAM MEMBER Orders Only [address] [place] [address] Lab, [facility] 06/17/2024 Orders Only [facility] Scanner 1 scan: (1-Ord) [facility], RT HIP, 06/17/2024 06/17/2024 Anticoagulation (warfarin) [address] [place] [address] 1, [facility] Anticoagulation (Lab ) 06/17/2024 Travel 06/11/[address], [place] [address] Meche Anderson MD Anticoagulation (Lab Orders) 05/19/2024 10:10 AM CDT Orders Only [address] [place] [address] Lab, [facility] 05/19/2024 Anticoagulation (warfarin) [address] [place] [address] 1, [facility] Anticoagulation 05/19/2024 Travel 05/14/[address] [place] [address] Meche Anderson MD Anticoagulation (Lab order update/) 05/01/2024 11:00 AM CDT Office Visit [address] [place] [address] Meche Anderson MD Hospital F/U (Left hip replacement. Just started PT) 05/01/2024 Anticoagulation (warfarin) [address] [place] [address] 1, [facility] Anticoagulation; Refill Request (Warfarin 2mg) 05/01/2024 Travel 04/27/2024 Anticoagulation (warfarin) [address] [place] [address] 1, [facility] Anticoagulation 04/26/2024 10:30 AM CDT Orders Only [address] [place] [address] Lab, [facility] 04/26/2024 Travel from Last 3 Months Immunizations Name Administration Dates Next Due AMB Influenza, IIV3 (Age >=3 years)(Flu Clinic Only) 06/19/2012 COVID-19 vaccine ([employer] 30mcg/0.3mL) PF, MDV 10/19/2020,09/28/2020 Influenza, High-dose Inactivated [...] Sign Reading Time Taken Comments Blood Pressure 162/90 07/08/2024 1:11 PM PRICING/SIGNAGE TEAM MEMBER manual recheck Pulse 82 07/08/2024 12:50 PM PRICING/SIGNAGE TEAM MEMBER Temperature 36.6 C (97.8 F) 03/30/2024 2:17 PM CDT Respiratory Rate 16 11/04/2021 2:50 PM CDT Oxygen Saturation 98% 07/08/2024 12: 50 PM PRICING/SIGNAGE TEAM MEMBER Inhaled Oxygen Concentration - - Weight 94.3 kg (207 lb 12.8 oz) 07/08/2024 12:50 PM PRICING/SIGNAGE TEAM MEMBER Height 176.6 cm (5' 9.53) 07/08/2024 1 2:50 PM PRICING/SIGNAGE TEAM MEMBER Body Mass Index 30.22 07/08/2024 12:50 PM PRICING/SIGNAGE TEAM MEMBER Plan of Treatment Health Maintenance Due Date Last Done Comments [...] wt on same day) for age 18+ 07/08/2025 07/08/2024, 03/30/2024, 03/09/2024, Additional history exists Tdap Completed 02/24/2013 Pneumococcal series for age 65+ Completed 7, 08/21/2010 Procedures Procedure Name Priority Date/Time Associated Diagnosis Comments CBC W PLT NO DIFF Routine 07/08/2024 1:1 6 PM PRICING/SIGNAGE TEAM MEMBER Pre-op evaluation Thrombocytopenia (HC) Anticoagulation monitoring, INR range 2-3 POTASSIUM Routine 07/08/2024 1:16 PM PRICING/SIGNAGE TEAM MEMBER Pre-op evaluation Stage 3a chronic kidney disease (HC) CREATININE Routine 07/08/2024 1:16 PM PRICING/SIGNAGE TEAM MEMBER Pre-op evaluation Stage 3a chronic kidney disease (HC) PROTIME-INR Routine 06/17/2024 9:50 AM PRICING/SIGNAGE TEAM MEMBER History of DVT (deep vein thrombosis) Anticoagulation monitoring, INR range 2-3 SCAN-MRI INTERPRETATION 06/17/20 12:00 AM PRICING/SIGNAGE TEAM MEMBER PROTIME-INR STAT 05/19/2024 10:00 AM CDT History of DVT (deep vein thrombosis) Anticoagulation monitoring, INR range 2-3 PROTIME-INR STAT 05/01/2024 11:04 AM CDT History of DVT (deep vein thrombosis) Anticoagulation monitoring, INR range 2-3 PROTIME-INR STAT 04/26/2024 10:43 AM CDT History of DVT (deep vein thrombosis) Anticoagulation monitoring, INR range 2-3 from Last 3 Months Results * CBC W PLT NO DIFF (07/08/2024 1:16 PM PRICING/SIGNAGE TEAM MEMBER) Pathologist [facility] WHITE BLOOD CELL COUNT 6.6 3.8 - 10.8 Thousand/u L [facility] RED BLOOD CELL COUNT 4.38 4.20 - 5.80 Million/uL [facility] HEMOGLOBIN 13.3 13.2 - 17.1 g/dL [facility] HEMATOCRIT 41.1 38.5 - 50.0 % [facility] MCV 93.8 80.0 - 100.0 fL [facility] MCH 30.4 27.0 - 33.0 pg [facility] MCHC 32.4 32.0 - 36.0 g/dL [facility] Comment: For adults, a slight decrease in the calculated MCHC value (in the range of 30 to 32 g/dL) is most likely not clinically significant; however, it should be interpreted with caution in correlation with other red cell parameters and the patient's clinical condition. RDW 13.2 11.0 - 15.0 % [facility] PLATELET COUNT 160 140 - 400 Thousand/u L [facility] MPV 10.2 7.5 - 12.5 fL [facility] Blood BLOOD SPECIMEN / Unknown 07/08/2024 1:16 PM PRICING/SIGNAGE TEAM MEMBER 07/08/2024 1:17 PM PRICING/SIGNAGE TEAM MEMBER Garcia Vasquez MD HEMATOL OGY [facility] [address] [place] [address], [place] [phone] [facility] [address] [place] [address] * POTASSIUM (07/08/2024 1:16 PM PRICING/SIGNAGE TEAM MEMBER) POTASSIUM 4.7 3.5 - 5.3 mmol/L [facility] Blood BLOOD SPECIMEN / Unknown 07/08/2024 1:16 PM PRICING/SIGNAGE TEAM MEMBER 07/08/2024 1:17 PM PRICING/SIGNAGE TEAM MEMBER Garcia Vasquez MD ROENTGENOLOGIST RY [employer] [facility] [address] [place] [address], [place] [phone] [facility] [address] [place] [address] * (ABNORMAL) CREATININE (07/08/2024 1:16 PM PRICING/SIGNAGE TEAM MEMBER) Pathologist [facility] CREATININE 1.38(H) 0.70 - 1.22 mg/dL [facility] EGFR 50(L) > OR = 60 mL/min/1.73 m2 [facility] Blood BLOOD SPECIMEN / Unknown 07/08/2024 1:16 PM PRICING/SIGNAGE TEAM MEMBER 07/08/2024 1:17 PM PRICING/SIGNAGE TEAM MEMBER Garcia Vasquez MD ROENTGENOLOGIST RY [facility] [address] [place] [address], [place] [phone] [facility] [address] [place] [address] * (ABNORMAL) PROTIME-INR [51152.0] - Standing Order (06/17/2024 9:50 AM PRICING/SIGNAGE TEAM MEMBER) Only the most recent of4 resultswithin the time period is included. INR 3.2(H) <1.3 06/17/2024 10:14 AM [facility] PROTIME 36.7(H) 10.6 - 12.4 sec 06/17/2024 10:14 AM [facility] Blood BLOOD SPECIMEN / Unknown [facility] / Unknown 06/17/2024 9:50 AM PRICING/SIGNAGE TEAM MEMBER 06/17/2024 9:57 AM PRICING/SIGNAGE TEAM MEMBER [facility] LABORATORY - 06/17/2024 10:14 AM PRICING/SIGNAGE TEAM MEMBER Therapeutic Range 2.0-3.0 for most anticoagulated patients 2.5-3.5 [...] Meche Anderson MD HEMATOLOGY Performing Organization Address City/State/[facility] Co de Phone Number [facility] [address] [place] [address] * SCAN-MRI INTERPRETATION (06/17/2024 12:00 AM PRICING/SIGNAGE TEAM MEMBER) Anatomical Region Laterality Modality Other Scanner OTHER from Last 3 Months Advance Directives * Full Code (Latest Code Status on File) Date Activated Date Inactivated Comments 01/26/2011 10:14 PM 01/30/2011 4:08 PM Care Teams Vp Public Relations Relationship Specialty Start Date End Date Meche Anderson MD [address] [facility] [place] [address] PCP - General 08/16/06
[2024-07-16] MEDS: ACETAMINOPHEN 500 MG TABLET 1000 MG PO (12:05)
[2024-07-16] MEDS: OXYCODONE (CR) 10 MG TAB.ER.12H PO (12:05)
--- NOTE | 2024-07-16 12:15 | CRLHL7_ITS ---
For Patients: As a result of the Century Cures Act, medical imaging exams and procedure reports are released immediately into your electronic medical record. You may view this report before your referring provider. If you have questions, please contact your health care provider. INDICATION: Prosthesis placement. COMPARISON: Preoperative right hip and pelvis from 06/10/2024 TECHNIQUE: Intraoperative fluoroscopy is provided. 60.8 seconds of fluoroscopic time was used. 2 AP views of the right hip are submitted. FINDINGS: The components of a newly placed right total hip prosthesis are in anatomic alignment with no sign of fracture, loosening, or dislocation. There is no sign of fracture of the chemehuevi osseous structures. IMPRESSION: Satisfactory appearance status post placement of a right total hip prosthesis. Dictated by Allen Camilo MD @ 07/17/2024 9:59:55 PM (Electronically Signed)
[2024-07-16 12:22] LABS: INR 1.05 (0.91-1.10); Prothrombin Time 14.3 Seconds
[2024-07-16] MEDS: fentaNYL 100 MCG/2 ML inj IVP (13:34)
[2024-07-16] MEDS: MIDAZOLAM HCL 1 MG/ML inj IVP (13:34)
--- NOTE | 2024-07-16 13:47 | SUR.PREOP ---
TIME?OUT:?1333 PT/RN/MDA?VERIFICATION?OF?SURGICAL?SITE,?PROCEDURE,?AND?CONSENT OBTAINED?PRIOR?TO?INVASIVE?PROCEDURE. all in agreement.
--- NOTE | 2024-07-16 13:48 | W.PM.NB ---
Nerve Block Nerve Block Time Seen by Provider: 13:42 Date Seen: 07/16/24 Type of block requested by surgeon for post-operative analgesia: HUEY/LFCN Side: right Time out performed: Yes Verification of patient name: Yes Verification of date of : Yes Site marking: site marked Name of person performing procedure: Rosalino Continuous monitoring Was continuous monitoring of O2 sat, B/P, rock climbing team member, recorded every 15 minutes?: Yes Procedure Checklist: sterile prep, needles and gloves Ultrasound guided. Images saved: Yes Medications given in 5ml increments after negative aspiration: Ropivicaine %: 0.5 mL: 30 Needle gauge: 20 Precedex (mcg): 25 Patient tolerated procedure well: Yes Additional comments: Needle noted below psoas tendon needle noted adjacent to LFCN Block Charges Block Charge (with Pro Fee): Other Periph Nerve Block Use of Ultrasound Machine for Block: Yes- US Guidance/pain block
--- NOTE | 2024-07-16 13:50 | W.ANESCHARGE ---
Anesthesia Charges Start Date/Time Anesthesia Start Date: 07/16/24 Anesthesia Start Time: 13:52 Stop Date/Time Anesthesia Stop Date: 07/16/24 Anesthesia Stop Time: 16:01 Summary Extremes of Age - Over 70 or under 1: MDA
[2024-07-16] MEDS: 0.9 % SODIUM CHLORIDE 500 ML 500 ML 100 ML IV (13:51)
[2024-07-16] MEDS: CEFAZOLIN 2 GM INJ IVP (13:59)
[2024-07-16] MEDS: TRANEXAMIC ACID 100 MG/ML INJ 1000 MG IV (14:10)
--- NOTE | 2024-07-16 15:32 | CRLHL7_ITS ---
For Patients: As a result of the Century Cures Act, medical imaging exams and procedure reports are released immediately into your electronic medical record. You may view this report before your referring provider. If you have questions, please contact your health care provider. INDICATION: Postop right hip prosthesis. COMPARISON: Intraoperative films from today. Preoperative films from 06/10/2024. TECHNIQUE: The right hip was examined with a cross-table lateral. An AP view of the pelvis is obtained for a total of 2 views. FINDINGS: The components of a newly placed right total hip prosthesis remain in anatomic alignment with no sign of fracture, loosening, or dislocation. There is no sign of fracture of the unga osseous structures. The components of the previously seen left total hip prosthesis remain in anatomic alignment with no sign of fracture, loosening, or dislocation. There is no sign of fracture of the unga osseous structures. The SI joints and pubic symphysis are normal in appearance. The rest of the bony pelvis and soft tissues are normal in appearance. IMPRESSION: 1. Satisfactory appearance of a newly placed right total hip prosthesis. 2. Continued satisfactory appearance of the left total hip prosthesis Dictated by Allen Camilo MD @ 07/17/2024 10:04:21 PM (Electronically Signed)
--- NOTE | 2024-07-16 15:35 | PM.ORPRC ---
Procedure Note Date of procedure: 07/16/24 Procedure: PREOPERATIVE DIAGNOSIS: Right hip osteoarthritis POSTOPERATIVE DIAGNOSIS: Right hip osteoarthritis NAME OF OPERATION: Right total hip arthroplasty SURGEON: Boston De La Rosa MD CONTROL ANALYST: Sabi Callahan PA-C, GIBRAN Hernandez IMPLANTS: 1. [employer] [place] # 56 sector ingrowth cup 2. 36 x 56 +4 neutral polyethylene 3. Actis # 8 standard collared ingrowth stem 4. 36 -2 ceramic femoral head ANESTHESIA: Spinal ESTIMATED BLOOD LOSS: 150 cc COMPLICATIONS: None SPECIMENS: None DRAINS: None PREOPERATIVE ANTIBIOTICS: Ancef 2 grams INDICATIONS: The patient is a 84-year-old with a longstanding history of severe, unrelenting right hip pain secondary to end-stage right hip osteoarthritis. Despite appropriate nonoperative management, including activity modification, use of an assist device, anti-inflammatories, [id number] pain medication, physical therapy and injections, they continue to have pain and disability. Operative intervention was offered. The risks, benefits and expected outcomes were discussed in detail. These included but were not limited to: Infection, bleeding, injury to blood vessel or nerve, venous thromboembolism. All questions were answered to their satisfaction. Use of an assistant community manager was necessary throughout the case for patient positioning and safety, soft tissue retraction and closure. PROCEDURE: The patient was placed supine on the Abrams table. General anesthesia was administered. The assistant community manager made sure the patient was properly positioned. The right hip was prepped and draped in the usual sterile fashion. The image intensifier was brought in for a perfect AP pelvis and a perfect double tear drop AP view of each hip which were used for intraoperative templating with our fluoroscopic guide. An oblique incision was made 3 cm distal and 3 cm lateral to the anterior superior iliac spine. The assistant community manager retracted the soft tissues to protect them. Subcutaneous dissection was taken with electrocautery to the superficial fascia. The fascia was divided in line with the incision. Blunt dissection was carried medially to the tensor fascia ezio and sartorius interval. Deep dissection was carried with electrocautery. The circumflex vessels were cauterized and divided. The capsule was exposed and then divided in a T-fashion, tagged with #1 Ethibond sutures. Retractors were placed in the joint, held by the assistant community manager. The corkscrew was placed in the femoral head. The neck cut was made in the subcapital region. We made a second neck cut more distal. The napkin ring of bone was removed. The femoral head was removed intact. Acetabular retractors were placed, held by the assistant community manager. The labrum was sharply debrided. The capsule was released. The 43 mm reamer was used to the true medial wall. We then enlarged in 2 mm increments using the image intensifier for our reamer placement. We impacted the cup which had excellent purchase. We placed the polyethylene. Attention was then turned to the proximal femur. The limb was placed in 140 degrees of external rotation, maximum extension and adduction. A significant amount of time was spent releasing the capsule to allow us to deliver the femur into the wound and complete the femoral side safely. Retractors were held by the assistant community manager throughout the femoral preparation. The press box custodian and canal finder were used. Broaches were used to a stable size. The calcar reamer was used. Trial components were placed. The hip was reduced and was found to be stable with appropriate soft tissue tension. Length and offset had been nicely restored using the image intensifier and our fluoroscopic guide. Trial components were removed. The stem was impacted. We placed the femoral head. Again, the hip was reduced and was found to be stable with appropriate soft tissue tension. Length and offset had been nicely restored. The assistant community manager did a three minute dilute Betadine solution soak. The assistant community manager irrigated the wound with 3 liters of normal saline via pulse lavage. The assistant community manager repaired the anterior capsule with a #1 Vicryl and our previously placed Ethibond sutures. The assistant community manager closed the fascia over the tensor fascia ezio with a #1 PDO Stratafix, subcutaneous tissues with 2-0 Vicryl, skin with a running 3-0 Stratafix and glue. A dry dressing was applied by the assistant community manager. Sponge and needle counts were correct x 2. The patient tolerated the procedure well; there were no apparent complications. They were awakened and extubated in the operating room, sent to the Post-Anesthesia Care Unit in satisfactory condition. PLAN: 1. The patient will be mobilized with physical therapy, weight-bearing as tolerates 2. His usual dose of Coumadin can be restarted 3. The patient will be discharged once medically appropriate
--- NOTE | 2024-07-16 15:56 | PM.IMCN1 ---
Date of Consult Patient: Christopher Patient Consult date: 04/14/24 Requesting Physician: Orthopedics Primary Care Provider: Meche Anderson MD Consult Narrative Reason for consult: Medical management of comorbidities Narrative: Les Menendez is a 84 year old male w/ Past medical history of PE& DVT, on Warfarin, IFG. CKD & hyperlipidemia who presents for an elective orthopedic surgery, S/P right total hip replacement. Warfarin was last taken on 07/08, His INR now is 1.05. He takes warfarin 2 mg QD. Patient was doing well postoperatively, pain controlled with pain medication. Review of Systems Status of ROS: Reports: 6 or more systems reviewed and unremarkable except as noted in History and below [facility] Medical History (Updated 07/16/24 @ 16:18 by Janiya Vick MD) Venous insufficiency (07/31/16) ?I87.2 - Venous insufficiency (chronic) (peripheral) (ICD-10) Thrombocytopenia (01/20/11) ?D69.6 - Thrombocytopenia, unspecified (ICD-10) Stage 3a chronic kidney disease (06/04/23) ?N18.31 - Chronic kidney disease, stage 3a (ICD-10) Prediabetes (12/20/20) ?R73.03 - Prediabetes (ICD-10) Nocturnal muscle cramps (06/04/23) ?R25.2 - Cramp and spasm (ICD-10) Mixed hyperlipidemia (02/20/11) ?E78.2 - Mixed hyperlipidemia (ICD-10) History of DVT (deep vein thrombosis) (01/27/15) ?Z86.718 - Personal history of other venous thrombosis and embolism (ICD-10) Essential hypertension (04/17/22) ?I10 - Essential (primary) hypertension (ICD-10) Chronic pain of right knee (06/04/23) ?M25.561 - Pain in right knee (ICD-10) ?G89.29 - Other chronic pain (ICD-10) Anticoagulation monitoring, INR range 2-3 (10/07/12) ?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 (ICD-10) Advance care planning (02/16/11) ?Z71.89 - Other specified counseling (ICD-10) Hypertension ?I10 - Essential (primary) hypertension (ICD-10) High cholesterol ?E78.00 - Pure hypercholesterolemia, unspecified (ICD-10) Pulmonary embolism ?I26.99 - Other pulmonary embolism without acute cor pulmonale (ICD-10) DVT (deep venous thrombosis) ?I82.409 - Acute embolism and thrombosis of unspecified deep veins of unspecified lower extremity (ICD-10) Surgical History (Updated 07/16/24 @ 18:36 by Janiya Vick MD) Status post left hip replacement (04/14/24) ?Z96.642 - Presence of left artificial hip joint (ICD-10) 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) ?Z96.651 - Presence of right artificial knee joint (ICD-10) History of bilateral carpal tunnel release ?Z98.890 - Other specified postprocedural states (ICD-10) Status post total left knee replacement (02/02/20) ?Z96.652 - Presence of left artificial knee joint (ICD-10) Social History (Updated 03/23/24 @ 11:06 by Safia Ruiz ~ [facility] 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 What is your current living situation?: I presently have a place to live Problems where you live: no known problems In the past 12 months, utilities in danger of being shut off: no In the past 12 mos, have been you worried that your food would run out before you had money to buy more?: never true In the past 12 mos, the food you bought just didn't last and you didn't have money to buy more?: never true Smoking Status: Former smoker What tobacco products do you use: cigarettes Smoking quit date/years: >15 years ago Do you use any of these nicotine containing products: None Second hand tobacco smoke exposure: No How often do you have a drink containing alcohol: never AUDIT-C Alcohol total score: 0 Non-prescribed substance use: denies use Caffeine: Yes How often does anyone, including family, friends and others, physically hurt you: never How often does anyone, including family, friends and others, insult or talk down to you: never How often does anyone, including family, friends and others, threaten you with harm: never How often does anyone, including family, friends and others, scream or curse at you: never service: Yes Meds Home Medications and Allergies Home Medications ?Medication ?Instructions ?Recorded ?Confirmed ?Type rosuvastatin 10 mg tablet 10 mg PO HS 07/25/23 07/16/24 History lisinopril 5 mg tablet 5 mg PO DAILY 04/06/24 07/16/24 History acetaminophen 500 mg tablet 500 mg PO Q6H PRN 04/10/24 07/16/24 History warfarin 2 mg tablet 2 mg PO DAILY 04/14/24 07/16/24 History Allergies Allergy/AdvReac Type Severity Reaction Status Date / Time atorvastatin Allergy Intermediate body aches Verified 06/10/24 13:21 simvastatin Allergy Unknown Verified 06/10/24 13:21 Exam Narrative: Exam Narrative: Physical exam GENERAL: Comfortable, no acute distress. HEAD AND NECK: Atraumatic, normocephalic CARDIOVASCULAR: RRR. Normal S1, S2. No murmurs. RESPIRATORY: Clear to auscultation B/L. Good air entry B/L. No wheezes or rhonchi. GASTROINTESTINAL: Not distended, not tender to palpation. NEUROLOGY: Alert, awake, oriented X 3. Normal speech. PSYCH: Normal mood, normal affect. Const: Vital Signs, click to edit/add: Vital Signs - 24 hr 07/16/24 11:44 07/16/24 13:17 07/16/24 13:34 Temperature 97.8 F 97.8 F Pulse Rate 72 77 76 Respiratory Rate 16 16 16 Blood Pressure 161/83 H 174/100 H 155/86 H Pulse Oximetry 97 96 96 Oxygen Delivery Me thod Room Air Nasal Cannula Nasal Cannula Oxygen Flow Rate 3 3 07/16/24 13:39 Temperature Pulse Rate 67 Respiratory Rate 16 Blood Pressure 147/73 H Pulse Oximetry 96 Oxygen Delivery Me thod Nasal Cannula Oxygen Flow Rate 3 Assessment and Plan Assessment and plan (1) Status post total right knee replacement: Problem comment: -Resume his usual dose of Coumadin (2 mg QD) per ortho recs -Start early ambulation with physical therapy. -Monitor for urine output postoperatively, bladder scan if needed. -Encourage incentive spirometry. Status: Acute (2) Primary osteoarthritis of right hip: Problem comment: Status post total right hip replacement on July 16. Status: Acute (3) Pulmonary embolism: Problem comment: -has been on lifelong coumadin. Resume normal warfarin dose Status: Acute (4) Anticoagulation monitoring, INR range 2-3: Problem comment: His usual dose of Coumadin can be restarted today 07/16 per ortho Need to monitor INR as an outpatient Status: Acute (5) Hypertension: Problem comment: Resume lisinopril when he gets home Status: Acute (6) Stage 3a chronic kidney disease: Problem comment: No nephrotoxic meds Status: Acute (7) Prediabetes: Problem comment: Will monitor Status: Acute (8) Mixed hyperlipidemia: Problem comment: On a statin Status: Acute Plan as above Total Time Spent Total Time Spent: Time spent: Today I spent 75 minutes seeing the patient, discussing the patient with ER staff, reviewing Expanse and EPIC notes/diagnostics, discussing the care plan with our care time that includes social work, PT/OT, pharmacy, RT, alf and documenting my impressions and plan in the medical record.
--- NOTE | 2024-07-16 16:08 | P.ANES_ITS ---
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
--- NOTE | 2024-07-16 16:35 | SUR.PHASEI ---
patient met discharge criteria per anesthesia
[2024-07-16] MEDS: LACTATED RINGERS 1000 ML 1,000 ML 75 ML IV (17:00)
[2024-07-16] MEDS: WARFARIN 2 MG TABLET PO (18:31)
--- NOTE | 2024-07-16 19:35 | PC.NURSE ---
Arrival post surgery: The patient arrived to the floor very sleepy. No feeling in either legs, but the patient can move both legs. No reports of pain. R hip dressing CDI with Ice pack. Tiara was at bedside and helped him eat supper. VSS on RA. LR @ 75. The patietn has not voided. Educated coater carbon paper light. Lesa AMARAL BSN
[2024-07-16] MEDS: CEFAZOLIN 2 GM in 0.9 % SODIUM CHLORIDE Mini-bag 100 ML IVPB (19:44)
[2024-07-16] MEDS: SENNOSIDES 1 TAB TABLET 2 TAB PO (20:26)
[2024-07-16] MEDS: OXYCODONE 5 MG TABLET PO (20:26)
[2024-07-16] MEDS: HYDROmorphone 0.5 mg/0.5 ml inj IVP ×2 (21:52→23:30)
--- NOTE | 2024-07-16 23:37 | PC.NURSE ---
Pt alert, oriented and vitally stable. Pain rated 7-10/10, prn oxy and dilaudid given, pt stated some relief. Pt in bed, call light within reach.
[2024-07-17] MEDS: OXYCODONE 5 MG TABLET PO ×6 (00:02→13:57)
[2024-07-17] MEDS: ACETAMINOPHEN 500 MG TABLET 1000 MG PO ×3 (00:02→12:25)
[2024-07-17] MEDS: CEFAZOLIN 2 GM in 0.9 % SODIUM CHLORIDE Mini-bag 100 ML IVPB (04:03)
[2024-07-17 04:05] VITALS: BP 124/81; PULSE 78; RESP 16; TEMP 36.7; O2SAT 94
[2024-07-17 06:40] LABS: Hematocrit 37.3 % (37.0-53.0); Immature Granulocytes Abs Auto 0.01 K/uL (0.00-0.30); Immature Granulocytes Pct Auto 0.1 %; Lymphocytes Percent Auto 3.7 % (20-44); Mean Corpuscular HGB Conc 32 gm/dL (32-36); Mean Corpuscular Hemoglobin 30 pg (26-34); Mean Corpuscular Volume 94 fL (80-100); Monocytes Percent Auto 7.5 % (0.0-11.0); Neutrophils Percent Auto 88.7 % (42.0-72.0); Platelet Count* 114 K/uL (140-440); Red Blood Count 3.98 m/uL (4.30-5.90); White Blood Count* 9.39 K/uL (4.50-11.00)
[2024-07-17 06:59] LABS: Potassium* 4.8 mmol/L (3.6-5.1); Sodium* 134 mmol/L (135-149)
[2024-07-17 07:00] VITALS: BP 121/87; PULSE 87; PULSE 89; RESP 18; TEMP 36.7; O2SAT 91
[2024-07-17 07:00] LABS: Slide Review Reflex No
[2024-07-17 07:02] LABS: Est. Creatinine Clearance* 54.99; Estimated Glomerular Filt Rate 74 ml/min
[2024-07-17 07:03] LABS: Blood Urea Nitrogen* 27 mg/dL (7-30)
--- NOTE | 2024-07-17 07:07 | PC.NURSE ---
Addendum entered by Ann De La Torre 07/17/24 07:42: correction: right hip pain not left Original Note: Pt alert and oriented x3. Afebrile. Pt rates pain 6-9/10 in left hip, pain managed with cold pack,?scheduled and PRN medication. Pt was bladder scanned for 710ml, pt got up and voided 400ml. Pt is up A1 with walker and gait belt, voiding, and tolerating regular diet. ??
[2024-07-17] MEDS: SODIUM CHLORIDE 0.9 % (FLUSH) 10 ML SYRINGE IVF (08:52)
[2024-07-17] MEDS: ONDANSETRON 2 MG/ML inj 4 MG IVP (08:52)
[2024-07-17] MEDS: SENNOSIDES 1 TAB TABLET 2 TAB PO (09:03)
--- NOTE | 2024-07-17 10:02 | P.ORPN_ITS ---
Subjective Subjective Time Seen by Provider: 07:45 Date Seen: 07/17/24 Principal diagnosis: Status post right hip replacement Interval history: Andrews is comfortable at rest this morning he will discharge to home. He denies nausea and vomiting. Ortho Exam Narrative Exam Narrative: Alert and oriented x3. Patient is in no acute distress. Converses without labored breathing. Hearing is grossly intact. Ambulates with a walker. Examination of the right hip shows the dressing is intact. Mild edema. No erythema or warmth or sign of infection. CMS intact right lower extremity. Calves are soft and nontender. Const Vital Signs, click to edit/add: Vital Signs - 24 hr 07/16/24 11:44 07/16/24 13:17 07/16/24 13:34 Temperature 97.8 F 97.8 F Pulse Rate 72 77 76 Pulse Rate [Right Pulse Oximeter] Respiratory Rate 16 16 16 Blood Pressure 161/83 H 174/100 H 155/86 H Blood Pressure [Right Arm] Pulse Oximetry 97 96 96 Oxygen Delivery Method Room Air Nasal Cannula Nasal Cannula Oxygen Flow Rate 3 3 07/16/24 13:39 07/16/24 15:58 07/16/24 16:05 Temperature 98.2 F 98.2 F Pulse Rate 67 69 66 Pulse Rate [Right Pulse Oximeter] Respiratory Rate 16 14 14 Blood Pressure 147/73 H 103/60 103/66 Blood Pressure [Right Arm] Pulse Oximetry 96 92 92 Oxygen Delivery Method Nasal Cannula Room Air Room Air Oxygen Flow Rate 3 07/16/24 16:10 07/16/24 16:15 07/16/24 16:20 Temperature 98.2 F 98.2 F 98.2 F Pulse Rate 68 68 75 Pulse Rate [Right Pulse Oximeter] Respiratory Rate 20 15 15 Blood Pressure 110/63 102/65 113/71 Blood Pressure [Right Arm] Pulse Oximetry 92 92 93 Oxygen Delivery Method Room Air Room Air Room Air Oxygen Flow Rate 07/16/24 16:25 07/16/24 16:30 07/16/24 16:45 Temperature 98.2 F 96.0 F L 96.0 F L Pulse Rate 71 65 66 Pulse Rate [Right Pulse Oximeter] Respiratory Rate 16 14 14 Blood Pressure 111/79 127/75 123/79 Blood Pressure [Right Arm] Pulse Oximetry 92 97 97 Oxygen Delivery Method Room Air Room Air Room Air Oxygen Flow Rate 07/16/24 17:00 12/05/24 17:15 07/16/24 17:30 Temperature 96.5 F L 96.8 F L 96.8 F L Pulse Rate 80 65 60 Pulse Rate [Right Pulse Oximeter] Respiratory Rate 14 14 16 Blood Pressure 121/80 123/82 136/87 Blood Pressure [Right Arm] Pulse Oximetry 98 94 98 Oxygen Delivery Method Oxygen Flow Rate 07/16/24 18:00 07/16/24 18:30 07/16/24 19:00 Temperature 96.8 F L 96.8 F L 99.1 F Pulse Rate 65 60 Pulse Rate [Right Pulse Oximeter] 60 Respiratory Rate 16 16 16 Blood Pressure 119/81 119/87 Blood Pressure [Right Arm] 138/85 Pulse Oximetry 99 100 92 Oxygen Delivery Method Oxygen Flow Rate 07/16/24 19:30 07/16/24 20:30 07/16/24 21:30 Temperature 97.1 F L 97.3 F L 99.1 F Pulse Rate 74 61 60 Pulse Rate [Right Pulse Oximeter] Respiratory Rate 16 18 16 Blood Pressure 146/93 H 149/91 H 138/85 Blood Pressure [Right Arm] Pulse Oximetry 95 98 92 Oxygen Delivery Method Room Air Oxygen Flow Rate 07/16/24 22:30 07/16/24 23:55 07/16/24 23:55 Temperature 98.7 F 97.6 F Pulse Rate 62 Pulse Rate [Right Pulse Oximeter] 71 Respiratory Rate 16 16 16 Blood Pressure 124/76 Blood Pressure [Right Arm] 131/82 Pulse Oximetry 91 90 90 Oxygen Delivery Method Nasal Cannula Nasal Cannula Oxygen Flow Rate 0.5 0.5 07/17/24 04:05 07/17/24 07:00 Temperature 98.0 F 98.1 F Pulse Rate Pulse Rate [Right Pulse Oximeter] 78 87 Respiratory Rate 16 18 Blood Pressure Blood Pressure [Right Arm] 124/81 121/87 Pulse Oximetry 94 91 Oxygen Delivery Method Room Air Room Air Oxygen Flow Rate Assessment and Plan Assessment and plan (1) Anticoagulation monitoring, INR range 2-3: Problem details: His usual dose of Coumadin can be restarted today 07/16 per ortho Need to monitor INR as an outpatient Status: Acute Assessment and Plan: Andrews will schedule an INR check next week with his family provider Dr. [facility]n at [facility]. He must schedule this when Gavi is available to take him. INR today 1.2. His normal INRs 2-3 range. He had his left hip replaced several months ago and took warfarin in the hospital postop day 1 and his usual dose the same day in the evening, for he normally takes his warfarin in the evening. He states he has been taking 2 mg. He will therefore have warfarin dosing twice today. Then he will resume his normal 2 mg daily. He states at 2.5 mg his INR was high and therefore it was recently lowered to 2 mg daily. Plan for discharge is today, and when they meets discharge criteria. Remove dressing 1 week. Observe wound and phone Orthopedics with any questions or concerns Use Ice on operative hip unrestricted. Return to clinic in 1 week with PA for a wound check Return to clinic in 6 weeks with surgeon Minimize narcotic use. Wean off and discontinue soon as possible. Activities as tolerated. No strenuous activity. Attend outpt PT (2) Status post right hip replacement: Status: Acute
[2024-07-17 11:47] VITALS: BP 107/69; PULSE 89; RESP 18; TEMP 36.8; O2SAT 91
[2024-07-17] MEDS: 0.9 % SODIUM CHLORIDE 250 ml 250 ML IV (12:25)
--- NOTE | 2024-07-17 16:37 | PC.NURSE ---
Discharge-- Pleasant and cooperative, alert and oriented patient was discharged to home via wheelchair with at approximately 1400. VSS and pt is afebrile. SPO2 maintained >90% on RA. Pain appears well managed with Oxycodone and Tylenol. Dressing to right hip is C/D/I and CMS is WNL. LS CTA. Pt had 1x emesis this morning, was given Zofran following and denied nausea following. He ate 75% of a regular lunch and tolerated it well. Pt had episode during OT when he became diaphoretic and felt faint. Orthostatic B/Ps were noted to drop significantly afterward. MD was notified and pt was given bolus of NS per MD orders. Discharge education was provided including diagnosis info, symptoms to report, medications and follow up plan. All questions answered and SL was removed with tip intact.
== END 2024-07-17 13:59 | disposition home or self-care (01) ==
LOC: OR 10:52 → MEDSURG 10:55
PROVIDERS: Anesthesiology; PCP Internal Medicine; Visit Provider Orthopaedic Surgery
PROC: (CPT 27130; principal; 2024-07-16 12:15)
DX: M16.11 Unilateral primary osteoarthritis, right hip (principal); G89.18 Other acute postprocedural pain; I12.9 Hypertensive chronic kidney disease with stage 1 through stage 4 chronic kidney disease, or unspecified chronic kidney disease; N18.31 Chronic kidney disease, stage 3a; R73.03 Prediabetes; I87.2 Venous insufficiency (chronic) (peripheral); Z86.711 Personal history of pulmonary embolism; Z86.718 Personal history of other venous thrombosis and embolism; Z79.01 Long term (current) use of anticoagulants; E78.2 Mixed hyperlipidemia
CPT/HCPCS: 27130; 01214; 36415; 64450; 73501; 76000; 76942; 82565; 84132; 84295; 84520; 85025; 85610; 86850; 86900; 86901; 97110; 97116; 97161; 97165; 97535; 99100; A9270; C1776; J0690; J1171; J2250; J2371; J2405; J2704; J2795; J3010; J7030; J7050; J7120